=== PATIENT | male | born 1930 | race Caucasian/White ===

== ENCOUNTER 2016-11-16 09:32 | Inpatient (IN) | payer OTHER, MEDICARE ==
[~2016-11-16] VITALS: Ht 172.7 cm; Wt 91.5 kg
[2016-11-16] VITALS (17 sets, daily range): BP systolic 141–186; BP diastolic 73–94; PULSE 58–71; RESP 18–20; TEMP 98–99.8; O2SAT 90–98
[~2016-11-16 09:32] MED LIST: ALLO300T2 PO; AMLO5 PO; ECOT81TA2 PO; HYDR10TA23 PO; IMDU60TA PO; METO100T PO; NITR0.4S SL; PRIL20TA2 PO; TICA90 PO
[2016-11-16] MEDS ORDERED: SODIUM CHLOR 0.9% 1000 ML INJ 1,000 ML IV ONE (09:36)
--- NOTE | 2016-11-16 09:54 | RADRPT ---
EXAM DATE/TIME: 11/16/2016 09:40 [facility] COMPARISON: No previous studies available for comparison. INDICATIONS : Stroke alert. Altered mental status and facial droop. RADIATION DOSE: 37.96 CTDIvol (mGy) This report was called to Dr. Willson at 09 48 MEDICAL HISTORY : Hypertension. prostate cancer SURGICAL HISTORY : Prostatectomy. ENCOUNTER: Initial ACUITY: 1 day PAIN SCALE: Non-responsive LOCATION: cranial TECHNIQUE: Multiple contiguous axial images were obtained of the head. Using automated exposure control and adj ustment of the mA and/or kV according to patient size, radiation dose was kept as low as reasonably a chievable to obtain optimal diagnostic quality images. FINDINGS: Old ischemic changes in the left frontal region and the left parietal region. There is no parenchym al hemorrhage, acute infarction or mass lesion. Ventricle size is appropriate. Posterior fossa is n ormal. CONCLUSION: Ischemic changes negative for an acute process. Adam Trent MD FACR on November 16, 2016 at 9:48 Board Certified Radiologist. This report was verified electronically.
[2016-11-16 09:55] LABS: I-STAT POTASSIUM 3.5 MMOL/L (3.5-4.9)
[2016-11-16 10:00] LABS: AUTOMATED NEUTROPHIL # 7.4 TH/MM3 (1.8-7.7); BASOPHIL # 0.1 TH/MM3 (0-0.2); BASOPHIL % 0.6 % (0.0-2.0); EOSINOPHIL # 0.1 TH/MM3 (0-0.4); EOSINOPHIL % 1.2 % (0.0-4.0); HEMO FLAGS DIFF FINAL; LYMPHOCYTE # 0.8 TH/MM3 (1.0-4.8); MEAN CELL VOLUME 86.6 FL (80.0-100.0); MEAN CORPUSCULAR HEMOGLOBIN 28.7 PG (27.0-34.0); MEAN CORPUSCULAR HGB CONC 33.1 % (32.0-36.0); MONO % 8.6 % (0.0-8.0); NEUT % 80.6 % (16.0-70.0); PLATELET COUNT 216 TH/MM3 (150-450); RED BLOOD COUNT 4.61 MIL/MM3 (4.50-5.90); RED CELL DISTRIBUTION WIDTH 15.2 % (11.6-17.2); WHITE BLOOD COUNT 9.2 TH/MM3 (4.0-11.0)
[2016-11-16 10:09] LABS: INTERNATIONAL NORMALIZED RATIO 1.1 RATIO; PROTHROMBIN TIME - PATIENT 12.3 SEC (9.8-11.6)
[2016-11-16] MEDS ORDERED: GLUCAGON 1 MG/ML VIAL OTHER PRN (10:15)
[2016-11-16] MEDS ORDERED: SODIUM CHLORIDE 0.9% FLUSH 10 ML FLUSH IV FLUSH PRN ×2 (10:15→11:30)
[2016-11-16] MEDS ORDERED: DEXTROSE 50% IN WATER 50 ML VIAL(D50) IV PUSH PRN (10:15)
[2016-11-16 10:28] LABS: CKMB 11.6 NG/ML (0.5-3.6)
--- NOTE | 2016-11-16 10:31 | PD ---
HPI Chief Complaint: Stroke Alert Time Seen by Provider: 09:36 Travel History International Travel<30 days: No Contact w/Intl Traveler<30days: No Traveled to known affect area: No History of Present Illness HPI 86-year-old male presents by ambulance for altered mental status and facial droop. This occurred 1 hour prior to arrival. Patient can state his name but history is very limited. Ambulance team stated that his legs went out from underneath him and there was report of possible fall PFSH Past Medical History Narrative Medical By records Hx Anticoagulant Therapy: Yes (ELIQUIS) Arthritis: No Asthma: No Heart Rhythm Problems: No Cancer: Yes (prostate) Cardiovascular Problems: Yes High Cholesterol: Yes Chemotherapy: No Chest Pain: No Congestive Heart Failure: No COPD: No Cerebrovascular Accident: No Coronary Artery Disease: Yes Gastrointestinal Disorders: No GERD: No Genitourinary: Yes Headaches: No Hepatitis: No Hiatal Hernia: No Hypertension: Yes Kidney Stones: No Musculoskeletal: No Neurologic: No Psychiatric: No Reproductive: No Respiratory: No Migraines: No Myocardial Infarction: No Radiation Therapy: No Renal Failure: No Seizures: No Sickle Cell Disease: No Sleep Apnea: No Ulcer: No ?: Not Past Surgical History Narrative Surgical By records Abdominal Surgery: No AICD: No Appendectomy: No Cardiac Surgery: Yes (STENTS TIMES 4- pacemaker) Cholecystectomy: No Coronary Artery Bypass Graft: No Ear Surgery: No Endocrine Surgery: No Eye Surgery: Yes (CATARACT REMOVAL) Genitourinary Surgery: Yes (PROSTATE REMOVED) Gynecologic Surgery: No Oral Surgery: No Pacemaker: Yes (medtronix dual chamber) Thoracic Surgery: No Other Surgery: Yes (fem pop) Social History Narrative Social History By records Alcohol Use: Yes (OCCASIONAL) Tobacco Use: No Substance Use: No Allergies-Medications (Allergen,Severity, Reaction): Coded Allergies: HMG-CoA Reductase Inhibitors (Verified Allergy, Severe, 10/07/15) MRI PRECAUTION (Verified Adverse Reaction, Severe, PACEMAKER (KD) 12/21/09 , 01/01/10) Reported Meds & Prescriptions Reported Meds & Active Scripts Active Brilinta 90 Mg Tab (Ticagrelor) 90 Mg Tab 90 Mg PO BID 30 Days Norvasc (Amlodipine Besylate) 5 Mg Tab 10 Mg PO DAILY 30 Days Ecotrin (Aspirin) 81 Mg Tabec 81 Mg PO DAILY 30 Days Reported Allopurinol 300 Mg Tab 300 Mg PO DAILY Prilosec Otc (Omeprazole Magnesium) 20 Mg Tab 20 Mg PO DAILY Imdur (Isosorbide Mononitrate) 60 Mg Tabcr 60 Mg PO DAILY Apresoline (Hydralazine HCl) 10 Mg Tab 10 Mg PO TID Lopressor (Metoprolol Tartrate) 100 Mg Tab 100 Mg PO BID Nitrostat (Nitroglycerin) 0.4 Mg Subl 0.4 Mg SL PRN 1 TAB SL EVERY 5 MINS X 3 PRN CHEST PAIN Review of Systems ROS Limitations: Poor Historian Physical Exam Exam Limitations: Poor Historian Narrative GENERAL: Well-nourished, well-developed patient. Hard of hearing SKIN: Warm and dry. HEAD: Normocephalic and atraumatic. EYES: No injection or drainage. Right pupil 1 cm, left pupil pinpoint but appears chronic and postsurgical ENT: No nasal drainage noted. NECK: Supple, trachea midline. CARDIOVASCULAR: Regular rate and rhythm RESPIRATORY: Breath sounds equal bilaterally at apices. No accessory muscle use. GASTROINTESTINAL: Abdomen soft, non-tender, nondistended. NEUROLOGICAL: Awake and alert to name. Clear speech, follows commands Data Data Last Documented VS Vital Signs Date Time Temp Pulse Resp B/P Pulse Ox O2 Delivery O2 Flow Rate FiO2 11/16/16 10:00 96 Nasal Cannula 4 11/16/16 09:40 21 11/16/16 09:32 71 18 11/16/16 09:32 186/94 Orders Diet Npo (11/16/16 Breakfast) Activity Bed Rest (11/16/16 ) Electrocardiogram (11/16/16 ) I-Stat Creatinine (11/16/16 09:36) I-Stat Profile (11/16/16 09:36) Prothrombin Time / Inr (Pt) (11/16/16 09:36) Act Partial Throm Time (Ptt) (11/16/16 09:36) Complete Blood Count With Diff (11/16/16 09:36) Fibrinogen (11/16/16 09:36) Creatine Kinase (Cpk) (11/16/16 09:36) Troponin I (11/16/16 09:36) Ua Includes Microscopic (11/16/16 09:36) Drug Screen, Random Urine (11/16/16 09:36) Type And Screen (11/16/16 09:36) Ct Brain W/O Iv Contrast(Rout) (11/16/16 ) Blood Glucose (11/16/16 09:36) Ecg Monitoring (11/16/16 09:36) Neuro Checks Q2HX12,Q4H (11/16/16 09:36) Nursing Bedside Swallow Assess .ONCE (11/16/16 09:36) Iv Access Insert/Monitor (11/16/16 09:36) NPO (11/16/16 09:36) Oximetry (11/16/16 09:36) Oxygen Administration (11/16/16 09:36) Sodium Chlor 0.9% 1000 Ml Inj (Ns 1000 M (11/16/16 09:36) Resp Oxygen Jimmy C Titrat 1-4 L (11/16/16 09:36) Cath For Specimen (11/16/16 09:36) Ct Cerv Spine W/O Contrast (11/16/16 ) Urinary Catheter Insert/Apply (11/16/16 10:00) Chest, Single Ap (11/16/16 ) Nih Stroke Scale - Nihss .On admission and discharge (11/16/16 10:03) Consult Pt Eval & Treat (11/16/16 10:03) Case Management Consult (11/16/16 ) Activity Bed Rest (11/16/16 10:03) Nursing Bedside Swallow Assess .ONCE (11/16/16 10:03) Scd Bilateral/Knee High MAGDI.QSHIFT (11/16/16 10:03) Diet Npo (11/16/16 Lunch) Hemoglobin (Hgb) A1c (11/16/16 10:03) Lipid Profile (11/17/16 06:00) Us Carotid Arteries Comp Bilat (11/16/16 ) Echo 2d Comp With Doppler (11/16/16 ) Resp Oxygen Jimmy C Titrat 1-4 L (11/16/16 ) ^ Hold Medication (11/16/16 10:03) Sodium Chlor 0.9% 1000 Ml Inj (Ns 1000 M (11/16/16 11:00) Aspirin Chew (Aspirin Chew) (11/17/16 09:00) Bedside Glucose MAGDI.AC&HS (11/16/16 10:03) ^ Discontinue Insulin Orders (11/16/16 10:03) Insulin Aspart Supplemtl Scale (Novolog (11/16/16 11:00) Dextrose 50% In Alex (Vial) Inj (D50w (Vi (11/16/16 10:15) Glucagon Inj (Glucagon Inj) (11/16/16 10:15) Consult Rehab Medicine (11/16/16 10:03) Cross Tie Turner / Telemetry MAGDI.Q8H (11/16/16 10:03) Consult Stoke Navigator (11/16/16 ) CKMB (11/16/16 09:30) CKMB% (11/16/16 09:30) Sodium Chloride 0.9% Flush (Ns Flush) (11/16/16 21:00) Sodium Chloride 0.9% Flush (Ns Flush) (11/16/16 10:15) (Hub Use Only)Inp Phy Cons/Ref (11/16/16 ) (Hub Use Only)Inp Phy Cons/Ref (11/16/16 ) B-Type Natriuretic Peptide (11/16/16 10:59) Consult Cardiology (11/16/16 ) Admit Order (Ed Use Only) (11/16/16 11:22) Labs Laboratory Tests Test 11/16/16 11/16/16 11/16/16 09:30 09:49 10:50 White Blood Count 9.2 TH/MM3 Red Blood Count 4.61 MIL/MM3 Hemoglobin 13.2 GM/DL Bedside Hemoglobin 13.9 G/DL Hematocrit 40.0 % Bedside Hematocrit 41.0 % Mean Corpuscular Volume 86.6 FL Mean Corpuscular Hemoglobin 28.7 PG Mean Corpuscular Hemoglobin 33.1 % Concent Red Cell Distribution Width 15.2 % Platelet Count 216 TH/MM3 Mean Platelet Volume 9.6 FL Neutrophils (%) (Auto) 80.6 % Lymphocytes (%) (Auto) 9.0 % Monocytes (%) (Auto) 8.6 % Eosinophils (%) (Auto) 1.2 % Basophils (%) (Auto) 0.6 % Neutrophils # (Auto) 7.4 TH/MM3 Lymphocytes # (Auto) 0.8 TH/MM3 Monocytes # (Auto) 0.8 TH/MM3 Eosinophils # (Auto) 0.1 TH/MM3 Basophils # (Auto) 0.1 TH/MM3 CBC Comment DIFF FINAL Differential Comment Prothrombin Time 12.3 SEC Prothromb Time International 1.1 RATIO Ratio Activated Partial 32.0 SEC Thromboplast Time Fibrinogen 429 mg/dL Bedside Sodium 139 MMOL/L Bedside Potassium 3.5 MMOL/L Bedside Chloride 103 MMOL/L Bedside Blood Urea Nitrogen 43 MG/DL Bedside Creatinine 2.8 MG/DL Bedside Glucose 178 MG/DL Total Creatine Kinase 365 U/L Creatine Kinase MB 11.6 NG/ML Creatine Kinase MB % 3.2 % Troponin I 3.42 NG/ML Blood Type B POSITIVE Antibody Screen NEGATIVE Blood Bank Comment Urine Color YELLOW Urine Turbidity CLEAR Urine pH 5.5 Urine Specific [place] 1.010 Urine Protein 30 mg/dL Urine Glucose (UA) NEG mg/dL Urine Ketones NEG mg/dL Urine Occult Blood NEG Urine Nitrite NEG Urine Bilirubin NEG Urine Urobilinogen LESS THAN 2.0 MG/DL Urine Leukocyte Esterase NEG Urine RBC 1 /hpf Urine WBC LESS THAN 1 /hpf Urine Amorphous Sediment OCC Urine Bacteria RARE /hpf Urine Hyaline Casts 1 /lpf Urine Mucus FEW /lpf Microscopic Urinalysis Comment Urine Opiates Screen NEG Urine Barbiturates Screen NEG Urine Amphetamines Screen NEG Urine Benzodiazepines Screen NEG Urine Cocaine Screen NEG Urine Cannabinoids Screen NEG MDM Medical Decision Making Medical Screen Exam Complete: Yes Emergency Medical Condition: Yes Medical Record Reviewed: Yes (past history confirm, prior cardiac catheter noted with recent stent 2016) Interpretation(s) CBC & BMP Diagram 11/16/16 09:30 Last [address] 11/16/16 0000 Signed Impressions: Service Date/Time: Monday, November 16, 2016 09:40 - CONCLUSION: Ischemic changes negative for an acute process. Adam Trent MD FACR EKG is paced at 65 which limits interpretation Differential Diagnosis Stroke, bleed, metabolic encephalopathy Narrative Course Patient was stable airway and I walked with patient to CT. No large bleed noted. When I got back to the department discuss with Dr. Garrido at bedside and given on eliquis and with improving symptoms no indication for TPA. NIH stroke scale is 3 with mild dysarthria and drowsiness and unable to answer orientation questioning Fully. We'll admit to the hospital for further care Physician Communication Physician Communication dr steele states he knows the patient very well and he usually comes with his son to his appointments. He states he is on eliquis for atrial fibrillation. He states he had his aortic valve replacement at [facility]. He states continue eliquis and no other anticoagulation at this time and they will follow Dr. Hendricks agrees to full admission in intermediate care area Diagnosis Primary Impression: Altered mental status Additional Impression: NSTEMI (non-ST elevated myocardial infarction) Admitting Information Admitting Physician Requests: Admit Shannan Willson MD Nov 16, 2016 10:31
--- NOTE | 2016-11-16 10:34 | MB ---
cc: ANNABELLE SANTIAGO M.D. DATE OF CONSULTATION: 11/16/2016 REASON FOR CONSULTATION Stroke Alert. HISTORY OF PRESENT ILLNESS Mr. Lopez is an 86-year-old man who has a history of coronary artery disease with cardiac stent placement and is on Eliquis. He presented today with the acute onset around 8:20 this morning of slurring of his speech, facial droop and a fall as well as mental status change with confusion. Therefore, a Stroke Alert was called. PAST MEDICAL HISTORY His past medical history obtained from the EMR indicates: 1. Peripheral vascular disease. 2. Coronary artery disease with cardiac stent placement. 3. Aortic stenosis. Apparently was being evaluated for aortic valve replacement. It is unclear as to whether he has had aortic valve replacement surgery. 4. Fem-pop bypass. 5. Prostatic resection. 6. Cataract surgery. 7. Hyperlipidemia. 8. Hypertension. MEDICATIONS Medications are remarkable for the fact that he is on Eliquis as well as aspirin. NEUROLOGICAL EXAMINATION Higher cortical fuction: He is lethargic but is arousable. He is disoriented to place and date. He is able to tell me his name. He does appear to be hard of hearing as well. He follows simple commands. There is no neglect phenomenon. He cannot answer more complicated questions. He does appear to be somewhat disoriented and confused. Cranial nerves: On cranial nerve exam I do not appreciate a facial droop at the present time. He does have pupillary asymmetry. The right pupil is 2 mm, left 1 mm, sluggishly reactive bilaterally. Possible surgical pupil on the right (he does have a history of cataract removal). The extraocular movements are intact to doll's eyes maneuver. Motor exam: He has normal case work aide bilaterally. He withdraws both lower extremities to tactile stimulation equally and can push down, plantar flex equally bilaterally. Reflexes are symmetric. He has no Babinski sign present. 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 No acute change seen. No hemorrhage is identified. LABORATORY DATA Hematocrit 41%. Sodium 139, potassium 3.5, chloride 103, BUN 43, creatinine 2.8, glucose 178. Remaining labs are pending. IMPRESSION Possible stroke versus metabolic encephalopathy versus TIA. At the present time he appears to be resolving his symptoms. I do not see a facial droop at the present time. There is no focal deficit on his motor examination or reflexes. A CT does not reveal acute change, although there is an old left hemisphere watershed distribution stroke. He has pupillary asymmetry but he does have a history of cataract surgery according to the chart so this could be postsurgical. The patient is not a candidate for IV TPA since he is on Eliquis and also with of what appears to be resolution of his symptoms. We cannot do a CT angiogram as he has an elevated creatinine. The fact that he seems to be resolving as well indicates that he would likely not be an intervention candidate at any rate. RECOMMENDATIONS Will review the NIH Stroke Scale when available. I would recommend continuing Eliquis and aspirin at the present time. I will check a chest x-ray to be sure there is no sign of any type of aortic valve prosthesis and if there is no contraindication would recommend proceeding with a brain MRI and MRA for further evaluation, echocardiogram as well as a carotid ultrasound. Since his symptoms appear to be resolving, I do not see any strong indication for head of bed flat status at the present time. Will also obtain an EEG to be sure there is no focal seizure activity. ADDENDUM Since the original dictation additional history has been obtained. The patient has a pacemaker placement. Therefore, he is not a candidate for MRI or MRA imaging. The NIH stroke scale of the patient is 3. MD LARISSA Patel/AMY /10:00 AM 11:05 AM
--- NOTE | 2016-11-16 10:38 | RADRPT ---
EXAM DATE/TIME: 11/16/2016 10:13 [facility] COMPARISON: No previous studies available for comparison. INDICATIONS : Stroke alert. MEDICAL HISTORY : Hypertension. Carcinoma, prostatic. CAD. SURGICAL HISTORY : Pacemaker. Stents. Prostate removed. ENCOUNTER: Initial ACUITY: 1 day PAIN SCORE: 0/10 LOCATION: Bilateral chest FINDINGS: Pacemaker is in good position. The heart is enlarged. Mild interstitial edema is present. There is no evidence of consolidation, pleural effusion or pneumothorax. CONCLUSION: 1. Cardiomegaly with mild congestive failure. 2. Pacemaker. Adam Trent MD FACR on November 16, 2016 at 10:24 Board Certified Radiologist. This report was verified electronically.
--- NOTE | 2016-11-16 10:54 | RADRPT ---
EXAM DATE/TIME: 11/16/2016 09:40 [facility] COMPARISON: No previous studies available for comparison. INDICATIONS : Trauma. Found down. RADIATION DOSE: 21.52 CTDIvol (mGy) MEDICAL HISTORY : Hypertension. prostate cancer SURGICAL HISTORY : Prostatectomy. ENCOUNTER: Initial ACUITY: 1 day PAIN SCALE: Non-responsive LOCATION: neck TECHNIQUE: Volumetric scanning of the cervical spine was performed. Multiplanar reconstructions in the sagittal, coronal and oblique axial planes were performed. Using automated exposure control and adjustment o f the mA and/or kV according to patient size, radiation dose was kept as low as reasonably achievable to obtain optimal diagnostic quality images. FINDINGS: Vertebral body heights are maintained. Osseous structures appear intact without evidence for acute fr acture or focal bony destruction. The dens is intact. There is a normal C1-2 relationship. Facets are normally aligned. Sagittal alignment is maintained. Prevertebral soft tissues are within normal limi ts. Incidental note is made of an enlarged right thyroid which extends into the superior mediastinum. The calcified plaque is noted in the carotid bulbs bilaterally. Visualized lung apices are clear. There is multilevel degenerative spondylosis of the cervical spine with variable facet arthropathy. T his is most prominent at C3-4, C4-5, C5-6, and C6-7. There is moderate to severe disc space narrowing with associated posterior osteophytes and variable moderate to severe facet arthropathy. There is re sultant mild to moderate neural foraminal narrowing on the left at the involved levels. There is mode rate to severe right neuroforaminal narrowing at C4-5. CONCLUSION: 1. No acute fracture or subluxation. 2. Multilevel degenerative spondylosis with variable degrees of facet arthropathy and neural foramina l stenosis, as above. 3. Incidental note of a markedly enlarged right thyroid lobe. This may be further evaluated with ultr asound examination of an outpatient basis as clinically warranted. Kenneth Bruno MD on November 16, 2016 at 10:25 Board Certified Radiologist. This report was verified electronically.
[2016-11-16] MEDS: INSULIN ASPART SUPPLEMENTAL SCALE SQ SCH ×3 (11:00→20:55)
[2016-11-16 11:17] LABS: BACTERIA, URINE RARE /hpf; BLOOD, URINE NEG (NEG); GLUCOSE,URINE NEG (NEG); HYALINE CAST, URINE 1 /lpf (RARE); KETONE, URINE NEG (NEG); MUCUS URINE FEW /lpf (OCC); NITRITE,URINE NEG (NEG); PH, URINE 5.5 (5.0-8.5); URINE COLOR YELLOW (YELLW/STRAW)
[2016-11-16 11:20] LABS: AMPHETAMINE, URINE NEG (NEG); BARBITURATES, URINE NEG (NEG); COCAINE, URINE NEG (NEG)
[2016-11-16] MEDS ORDERED: ACETAMINOPHEN 325 MG TAB PO PRN ×2 (11:30)
[2016-11-16] MEDS ORDERED: SENNOSIDES 8.6 MG TAB PO PRN (11:30)
[2016-11-16] MEDS ORDERED: ONDANSETRON HCL 4 MG/2 ML VIAL IVP PRN (11:30)
[2016-11-16] MEDS ORDERED: NALOXONE HCL 0.4 MG/ML AMP IV PRN (11:30)
--- NOTE | 2016-11-16 11:40 | HHI.HP ---
HPI Service [facility] Primary Care Physician Unknown Admission Diagnosis NSTEMI, altered mental status Diagnoses: (1) Toxic metabolic encephalopathy (2) Encephalopathy, metabolic (3) TIA (transient ischemic attack) (4) NSTEMI (non-ST elevated myocardial infarction) (5) Hypertension (6) CAD (coronary artery disease) Chief Complaint: Altered Mental status change Travel History International Travel<30 Days: No Contact w/Intl Traveler <30 Da: No Traveled to Known Affected Are: No History of Present Illness Patient is unable to communicate at this time during my exam and history is obtained from ED report and chart review below; "86-year-old male presents by ambulance for altered mental status and facial droop. This occurred 1 hour prior to arrival. Patient can state his name but history is very limited. Ambulance team stated that his legs went out from underneath him and there was report of possible fall" Abnormal labs include troponin I 3.42, BNP 651, BUN/creatinine 43/2.8 and blood glucose 178. Vitals on admission HR 71, RR 18, BP 186/124 and 96%RA Review of Systems ROS Limitations: Altered Mental Status Except as stated in HPI: all other systems reviewed are Neg Past Family Social History Past Medical History Obtained from reviewing chart: Hx Anticoagulant Therapy: Yes (ELIQUIS) Cancer: Yes (prostate) Cardiovascular Problems: Yes Hypertension: Yes Past Surgical History Obtained from reviewing chart: Cardiac Surgery: Yes (STENTS TIMES 4- pacemaker) Eye Surgery: Yes (CATARACT REMOVAL) Genitourinary Surgery: Yes (PROSTATE REMOVED) Pacemaker: Yes (medtronix dual chamber) Other Surgery: Yes (fem pop) Reported Medications Obtained from reviewing chart: Brilinta 90 Mg Tab (Ticagrelor) 90 Mg Tab 90 Mg PO BID 30 Days Norvasc (Amlodipine Besylate) 5 Mg Tab 10 Mg PO DAILY 30 Days Ecotrin (Aspirin) 81 Mg Tabec 81 Mg PO DAILY 30 Days Reported Allopurinol 300 Mg Tab 300 Mg PO DAILY Prilosec Otc (Omeprazole Magnesium) 20 Mg Tab 20 Mg PO DAILY Imdur (Isosorbide Mononitrate) 60 Mg Tabcr 60 Mg PO DAILY Apresoline (Hydralazine HCl) 10 Mg Tab 10 Mg PO TID Lopressor (Metoprolol Tartrate) 100 Mg Tab 100 Mg PO BID Nitrostat (Nitroglycerin) 0.4 Mg Subl 0.4 Mg SL PRN 1 TAB SL EVERY 5 MINS X 3 PRN CHEST PAIN Allergies: Coded Allergies: HMG-CoA Reductase Inhibitors (Verified Allergy, Severe, 10/07/15) MRI PRECAUTION (Verified Adverse Reaction, Severe, PACEMAKER (KD) 12/21/09 , 01/01/10) Family History Secondary to patient's altered mental status change, unable to obtain family history Social History Obtained from reviewing chart: Alcohol Use: Yes (OCCASIONAL) Tobacco Use: No Substance Use: No Physical Exam Vital Signs Vital Signs Date Time Temp Pulse Resp B/P Pulse Ox O2 Delivery O2 Flow Rate FiO2 11/16/16 10:00 96 Nasal Cannula 4 11/16/16 09:40 96 21 11/16/16 09:32 71 18 96 Room Air 11/16/16 09:32 71 18 186/94 96 11/16/16 09:32 71 18 186/94 96 Room Air 11/16/16 09:32 96 Room Air Physical Exam GENERAL: Lethargic SKIN: No rashes, ecchymoses or lesions. Cool and dry. HEAD: Atraumatic. Normocephalic. No temporal or scalp tenderness. EYES: Pupils equal round and reactive. Extraocular motions intact. ENT: Nose without bleeding, purulent drainage or septal hematoma. Throat without erythema, tonsillar hypertrophy or exudate. Uvula midline. Airway patent. NECK: Trachea midline. No JVD or lymphadenopathy. Supple, nontender, no meningeal signs. CARDIOVASCULAR: Irregular Regular rate and rhythm without murmurs, gallops, or rubs. RESPIRATORY: Clear to auscultation. Breath sounds decrease bilaterally. No wheezes, rales, or rhonchi. GASTROINTESTINAL: Abdomen soft, non-tender, nondistended. No hepato-splenomegaly , or palpable masses. No guarding. MUSCULOSKELETAL: Extremities without clubbing, cyanosis, or edema. No joint tenderness, effusion, or edema noted. No calf tenderness. Negative Homans sign bilaterally. NEUROLOGICAL: Awake and alert. Cranial nerves II through XII intact. Laboratory Laboratory Tests Test 11/16/16 11/16/16 11/16/16 09:30 09:49 10:50 White Blood Count 9.2 Red Blood Count 4.61 Hemoglobin 13.2 Bedside Hemoglobin 13.9 Hematocrit 40.0 Bedside Hematocrit 41.0 Mean Corpuscular Volume 86.6 Mean Corpuscular Hemoglobin 28.7 Mean Corpuscular Hemoglobin 33.1 Concent Red Cell Distribution Width 15.2 Platelet Count 216 Mean Platelet Volume 9.6 Neutrophils (%) (Auto) 80.6 Lymphocytes (%) (Auto) 9.0 Monocytes (%) (Auto) 8.6 Eosinophils (%) (Auto) 1.2 Basophils (%) (Auto) 0.6 Neutrophils # (Auto) 7.4 Lymphocytes # (Auto) 0.8 Monocytes # (Auto) 0.8 Eosinophils # (Auto) 0.1 Basophils # (Auto) 0.1 CBC Comment DIFF FINAL Differential Comment Prothrombin Time 12.3 Prothromb Time International 1.1 Ratio Activated Partial 32.0 Thromboplast Time Fibrinogen 429 Bedside Sodium 139 Bedside Potassium 3.5 Bedside Chloride 103 Bedside Blood Urea Nitrogen 43 Bedside Creatinine 2.8 Bedside Glucose 178 Total Creatine Kinase 365 Creatine Kinase MB 11.6 Creatine Kinase MB % 3.2 Troponin I 3.42 Blood Type B POSITIVE Antibody Screen NEGATIVE Blood Bank Comment Urine Color YELLOW Urine Turbidity CLEAR Urine pH 5.5 Urine Specific [place] 1.010 Urine Protein 30 Urine Glucose (UA) NEG Urine Ketones NEG Urine Occult Blood NEG Urine Nitrite NEG Urine Bilirubin NEG Urine Urobilinogen LESS THAN 2.0 Urine Leukocyte Esterase NEG Urine RBC 1 Urine WBC LESS THAN 1 Urine Amorphous Sediment OCC Urine Bacteria RARE Urine Hyaline Casts 1 Urine Mucus FEW Microscopic Urinalysis Comment Urine Opiates Screen NEG Urine Barbiturates Screen NEG Urine Amphetamines Screen NEG Urine Benzodiazepines Screen NEG Urine Cocaine Screen NEG Urine Cannabinoids Screen NEG Result Diagram: 11/16/1630 Imaging Last Impressions Head CT 11/16/16 0000 Signed Impressions: Service Date/Time: Wednesday, November 16, 2016 09:40 - CONCLUSION: Ischemic changes negative for an acute process. Adam Trent MD FACR Cervical Spine CT 11/16/16 0000 Signed Impressions: Service Date/Time: Wednesday, November 16, 2016 09:40 - CONCLUSION: 1. No acute fracture or subluxation. 2. Multilevel degenerative spondylosis with variable degrees of facet arthropathy and neural foraminal stenosis, as above. 3. Incidental note of a markedly enlarged right thyroid lobe. This may be further evaluated with ultrasound examination of an outpatient basis as clinically warranted. Kenneth Bruno MD Assessment and Plan Problem List: (1) TIA (transient ischemic attack) ICD Code: G45.9 Status: Acute (2) Encephalopathy, metabolic ICD Code: G93.41 Status: Acute (3) Toxic metabolic encephalopathy ICD Code: G92 Status: Acute (4) NSTEMI (non-ST elevated myocardial infarction) ICD Code: I21.4 Status: Acute (5) Hypertension ICD Code: I10 Status: Acute (6) CAD (coronary artery disease) ICD Code: I25.10 Status: Acute (7) Atrial fibrillation ICD Code: I48.91 Status: Acute Assessment and Plan 86-year-old man with TIA/stroke alert/metabolic encephalopathy -Continue with aspirin as well as Eliquis -Start statin therapy -NIHSS, Neuro checks, Monitor on telemetry -PT/OT/ST evaluations, consult rehab medicine -allow permissive HTN, IV Vasotec and IV labetalol if SBP >220 -Check lipid profile and HgbA1c -Check carotid U/S, 2-D echo and EEG -Head CT 11/16/16 noted and review by me with Ischemic changes negative for an acute process. -Unable to obtain brain MRI/MRA secondary to history of AICD -Unable to obtain CTA secondary to worsening renal function -Appreciate input from neurology -Check UDS, UA as well as ammonia level Non-ST elevation AK History of atrial fibrillation History of AICD placement History of CHF ACS rule out per protocol with serial cardiac enzyme and EKGs Continue with Eliquis pending consultation from cardiology Resume outpatient medications except antihypertensive medications Check 2-D echo History of hypertension: We will allow for permissive hypertension Acute renal failure Prerenal, secondary to dehydration Gentle IV fluid hydration and monitor BUN and creatinine. Avoid all nephrotoxic drugs History of dementia Resume outpatient medications Code Status Full code Discussed Condition With ED physician Physician Certification 2 Midnight Certification Type: Admission for Inpatient Services Order for Inpatient Services The services are ordered in accordance with Medicare regulations or non- Medicare payer requirements, as applicable. In the case of services not specified as inpatient-only, they are appropriately provided as inpatient services in accordance with the 2-midnight benchmark. Estimated LOS (days): 2 days is the estimated time the patient will need to remain in the hospital, assuming treatment plan goals are met and no additional complications. Post-Hospital Plan: Not yet determined Aime Hendricks MD Nov 16, 2016 11:40
[2016-11-16] MEDS: SODIUM CHLOR 0.9% 1000 ML INJ 1,000 ML IV SCH (11:44)
[2016-11-16] MEDS ORDERED: FURO40TA PO (11:54)
[2016-11-16] MEDS ORDERED: HYDR-3799 PO (11:54)
[2016-11-16] MEDS ORDERED: ASPI81CH3 CHEW (11:54)
[2016-11-16] MEDS ORDERED: METO100T PO (11:54)
[2016-11-16] MEDS ORDERED: ISOS60TA PO (11:54)
[2016-11-16] MEDS ORDERED: AMLO10TA2 PO (11:54)
[2016-11-16] MEDS ORDERED: PANT40TA3 PO (11:54)
[2016-11-16] MEDS ORDERED: ALLO100T PO (11:54)
[2016-11-16] MEDS ORDERED: APIX2.5T PO (11:54)
--- NOTE | 2016-11-16 12:14 | RADRPT ---
EXAM DATE/TIME: 11/16/2016 10:48 [facility] COMPARISON: No previous studies available for comparison. INDICATIONS : Cerebrovascular accident. MEDICAL HISTORY : Hypercholesterolemia. Hypertension. Carcinoma, prostate. CAD. Chronic kidney di sease. Ventral hernia. Anticoagulant therapy, Eliquis. SURGICAL HISTORY : Pacemaker. Prostatectomy. Cataract removal. Left shoulder fracture surgery. ENCOUNTER: Initial ACUITY: 1 day PAIN SCORE: Nonresponsive. LOCATION: Bilateral neck PEAK SYSTOLIC VELOCITIES (cm/sec): ICA/CCA RATIO: Right: 0.9 Left: 1.3 ICA: Right: 43 Left: 64 CCA: Right: 50 Left: 47 ECA: Right: 51 Left: 152 VERTEBRAL: Right: 16.8 antegrade Left: 75 antegrade Elevated flow velocities and ICA/CCA ratios have been found to correlate with increased degrees of vessel stenosis, calculated as percentage of diameter relative to a normal segment of distal ICA/CCA FINDINGS: RIGHT CAROTID: There is no evidence for a hemodynamically significant carotid stenosis. Minimal sof t plaque is noted on the right. Minimal intimal hyperplasia is present with scattered calcific plaqu e. LEFT CAROTID: There is no evidence for a hemodynamically significant carotid stenosis. Minimal inti mal hyperplasia is present with scattered calcific plaque. VERTEBRAL ARTERIES: Flow is antegrade in both vertebral arteries. MISCELLANEOUS: There are no ancillary masses or adenopathy. CONCLUSION: Negative examination for a hemodynamically significant carotid stenosis. Minimal soft p laque is noted on the right. CT angiography may be of benefit. Adam Trent MD FACR Board Certified Radiologist. This report was verified electronically.
--- NOTE | 2016-11-16 13:43 | MB ---
cc: ARACELIS VERA DATE OF CONSULTATION 11/16/2016 DATE OF 1930 REASON FOR CONSULTATION Elevated troponin HISTORY OF PRESENT ILLNESS 86-year-old male with a past medical history significant for coronary artery disease, TAVR, atrial fibrillation on chronic oral anticoagulation, peripheral vascular disease status post fem-pop bypass, hypertension, hyperlipidemia who presented to the emergency department with slurred speech, facial droop and acute change in mental status associated with confusion. A stroke alert was called and neurology evaluated the patient and they noted the patient was not a tPA candidate given the chronic oral anticoagulation. Imaging studies of the head did not reveal any acute head infarct or bleeding. He was not a candidate for MRI given the patient has a pacemaker. Troponin of 3.42. EKG is showing a paced rhythm. Cardiology has been consulted for further management and evaluation. Unfortunately, history taken from the chart given that the patient is a poor historian and is hard of hearing and he has severe dementia. There is no one in the room with him either. Apparently and sons are not around. REVIEW OF SYSTEMS Unobtainable PAST MEDICAL HISTORY Per chart: 1. PAD 2. CAD 3. AF status post TAVR 4. Fem pop bypass 5. Prostatic resection 6. Carotid surgery 7. Hyperlipidemia 8. Hypertension 9. Dementia FAMILY HISTORY Unobtainable SOCIAL HISTORY Unobtainable ALLERGIES STATINS CARDIAC MEDICATIONS AT HOME 1. Norvasc 10 mg p.o. daily 2. Eliquis 2.5 mg p.o. b.i.d. 3. Aspirin 81 mg p.o. daily 4. Lasix 40 mg p.o. daily 5. Hydralazine 25 mg p.o. t.i.d. 6. Imdur 60 mg p.o. daily 7. Metoprolol 100 mg p.o. t.i.d. DATA CBC hemoglobin 13, hematocrit of 40, platelet count 216, INR 1.1. Electrolytes sodium 139, potassium 3.5, BUN 43, creatinine is 2.8, troponin 3.42. BNP 651. Toxicology screen negative. Urinalysis is remarkable for a large amount of protein in the urine. CT HEAD: There is no acute ischemia or bleed. CERVICAL SPINE CT: Unremarkable. CAROTID ARTERY ULTRASOUND: Unremarkable EKG; Ventricular paced rhythm ASSESSMENT/PLAN 86-year-old male with significant cardiovascular history who presents to the emergency department with symptoms and signs concerning for an acute stroke vs. TIA or seizure. Head imaging unremarkable but MRI cannot be perform due to pacemaker. He has been found to have a troponin of 3. He remains hemodynamically stable, however still very confused, unable to provide a history. He denies chest pains or any cardiovascular complaints. Regarding elevated troponin, this might be explain by a neurological event eg. acute stroke or a atypical presentation of ACS, however given significant changes in baseline neurological status acute stroke seems more likely. Thus at this time he is not a candidate for invasive cardiac management (LHC/PCI). In respect to anticoagulation will defer to Neurology. Recommendations: 1. Ischemic directed therapy for medical management for CAD with aspirin and beta blockers 2. Hold LOGAN inhibitors given the acute kidney injury 3. No statins due to allergy 4. Echocardiogram to assess his LV systolic function. Thank you for the opportunity to participate in the care of this patient. Further management to be determined. MD BEBETO Velasquez/ELDA /1:04 PM /1:25 PM TOMMY
[2016-11-16] MEDS: hydrALAZINE HCL 20 MG/ML VIAL IV PUSH PRN ×2 (14:10→23:53)
--- NOTE | 2016-11-16 16:44 | MG ---
cc: ANNABELLE SANTIAGO Lab No: [id number] Date: 11/16/16 Age: 86 Sex: M Race: TECHNIQUE 17 channel EEG. DESCRIPTION The background rhythm reveals a symmetrical alpha rhythm with frequency of 8 Hz, amplitude 10-20 microvolts. During drowsiness there is slowing in the theta range. There are no lateralizing features identified. Occasional muscle artifact is seen. There are no epileptiform features present. Hyperventilation was not done. Photic stimulation was done in a stepwise fashion with a normal driving response. INTERPRETATION Normal EEG. MD LARISSA Patel/HARESH /4:27 PM /4:38 PM
[2016-11-16 17:09] LABS: HEMOGLOBIN A1a 0.9 %; HEMOGLOBIN A1b 2.2 %; HEMOGLOBIN Ao 82.7 %; HEMOGLOBIN LA1C 2.7 %; HEMOGLOBIN P3 6.2 %
[2016-11-16 17:18] LABS: CKMB 10.6 NG/ML (0.5-3.6)
[2016-11-16] MEDS: APIXABAN 2.5 MG TABLET PO SCH ×2 (20:52→20:57)
[2016-11-16] MEDS: SODIUM CHLORIDE 0.9% FLUSH 10 ML FLUSH IV FLUSH SCH (20:52)
[2016-11-16] MEDS ORDERED: SODIUM CHLORIDE 0.9% FLUSH 10 ML FLUSH IV FLUSH SCH (21:00)
[2016-11-16] MEDS ORDERED: HEPARIN SODIUM - IV 10,000 UNITS/10 ML VIAL IV PRN ×2 (23:15)
[2016-11-16] MEDS: HEPARIN 25,000 UNITS-D5W 250 ML - PREMIX IV SCH (23:17)
[2016-11-16 23:33] LABS: INDIRECT BILIRUBIN 0.7 MG/DL (0.0-0.8); TOTAL BILIRUBIN ADULT 1.3 MG/DL (0.2-1.0)
[2016-11-17] VITALS (27 sets, daily range): BP systolic 136–204; BP diastolic 63–86; PULSE 58–63; RESP 16–20; TEMP 98.4–99.5; O2SAT 92–96
[2016-11-17] MEDS: SODIUM CHLOR 0.9% 1000 ML INJ 1,000 ML IV SCH ×2 (01:18→15:44)
[2016-11-17] MEDS: ISOSORBIDE MONONITRATE 60 MG TAB PO SCH (05:25)
[2016-11-17] MEDS: hydrALAZINE HCL 20 MG/ML VIAL IV PUSH PRN ×3 (05:25→20:09)
[2016-11-17] MEDS: INSULIN ASPART SUPPLEMENTAL SCALE SQ SCH ×4 (06:12→20:09)
[2016-11-17 06:37] LABS: AUTOMATED NEUTROPHIL # 7.4 TH/MM3 (1.8-7.7); BASOPHIL % 0.4 % (0.0-2.0); EOSINOPHIL % 0.3 % (0.0-4.0); HEMATOCRIT 41.3 % (39.0-51.0); HEMO FLAGS DIFF FINAL; LYMPH % 12.7 % (9.0-44.0); LYMPHOCYTE # 1.2 TH/MM3 (1.0-4.8); MEAN CELL VOLUME 86.8 FL (80.0-100.0); MEAN CORPUSCULAR HEMOGLOBIN 28.5 PG (27.0-34.0); MEAN CORPUSCULAR HGB CONC 32.9 % (32.0-36.0); MONO % 9.4 % (0.0-8.0); NEUT % 77.2 % (16.0-70.0); PLATELET COUNT 213 TH/MM3 (150-450); RED BLOOD COUNT 4.75 MIL/MM3 (4.50-5.90); RED CELL DISTRIBUTION WIDTH 15.2 % (11.6-17.2); WHITE BLOOD COUNT 9.6 TH/MM3 (4.0-11.0)
[2016-11-17 06:56] LABS: APTT (PATIENT) 59.5 SEC (24.3-30.1)
[2016-11-17 07:07] LABS: ANION GAP 13 MEQ/L (5-15); AST (GOT) 46 U/L (15-37); BICARBONATE 23.1 MEQ/L (21.0-32.0); BLOOD UREA NITROGEN 40 MG/DL (7-18); CHLORIDE 106 MEQ/L (98-107); GLOMERULAR FILTRATION RATE 24 ML/MIN (>89); POTASSIUM 3.6 MEQ/L (3.5-5.1); SODIUM (NA) 142 MEQ/L (136-145)
[2016-11-17 07:08] LABS: ALT (GPT) 28 U/L (12-78)
[2016-11-17 07:10] LABS: ALKALINE PHOSPHATASE 134 U/L (45-117); HDL CHOLESTEROL 32.2 MG/DL (40.0-60.0); LDL CHOLESTEROL 116 MG/DL (0-99); TOTAL BILIRUBIN ADULT 1.3 MG/DL (0.2-1.0)
[2016-11-17] MEDS: SODIUM CHLORIDE 0.9% FLUSH 10 ML FLUSH IV FLUSH SCH ×2 (09:00→20:09)
[2016-11-17] MEDS: FUROSEMIDE 40 MG TAB PO SCH (09:00)
[2016-11-17] MEDS: APIXABAN 2.5 MG TABLET PO SCH ×2 (09:00→20:09)
[2016-11-17] MEDS: ASPIRIN 81 MG CHEW TAB PO SCH (09:00)
--- NOTE | 2016-11-17 10:00 | ECHRPT ---
Indication: cva/tia Indication: cva/tia CONCLUSIONS The left ventricular systolic function is normal with an estimated ejection fraction in the range of 55- 60%.wall thickness is measured at the upper limits of normal. No regional wall motion abnormalities are present.The left atrial size is mildly dilatedModerate mitral annular calcification. Mild mitral christine ve regurgitation. Diastolic dysfunction represented with a small a and a very large E wavebioprosthetic aortic valve without stenosis or regurgitationThere is mild tricuspid valve regurgitation. BP: 186 / 94 HR: 71 Rhythm: Other MEASUREMENTS (Male / Female) Normal Values Technical Quality:Technically difficult study 2D ECHO LVOT Diameter 2.3 cm Aortic Root Diameter 2.8 cm DOPPLER AV Peak Velocity 141.4 cm/s AV Peak Gradient 8.0 mmHg AV Mean Gradient 5.0 mmHg AV Velocity Time Integral 29.5 cm LVOT Peak Velocity 105.9 cm/s LVOT Peak Gradient 4.5 mmHg LVOT Velocity Time Integral 22.4 cm LVOT Cardiac Index 3127.2 cm/minm AV Area Cont Eq vti 3.2 cm AV Area Cont Eq pk 3.1 cm Mitral E Point Velocity 149.7 cm/s LV E' Lateral Velocity 6.0 cm/s Mitral E to LV E' Lateral Ratio 24.8 LV E' Septal Velocity 6.2 cm/s Mitral E to LV E' Septal Ratio 24.2 TR Peak Velocity 303.0 cm/s TR Peak Gradient 36.7 mmHg PV Peak Velocity 77.5 cm/s PV Peak Gradient 2.4 mmHg FINDINGS Left Ventricle Normal left ventricular size and wall thickness. The left ventricular systolic function is normal wi th an estimated ejection fraction in the range of 55-60%.wall thickness is measured at the upper limits of normal. No regional wall motion abnormalities are present. Left Atrium The left atrial size is mildly dilated Mitral Valve Moderate mitral annular calcification. Mild mitral valve regurgitation. Diastolic dysfunction repres ented with a small a and a very large E wave Aortic Valve bioprosthetic aortic valve without stenosis or regurgitation Tricuspid Valve There is mild tricuspid valve regurgitation. Enrique Nicole MD (Electronically Signed) Final Date:17 November 2016 09:59
[2016-11-17 10:49] LABS: HEMOGLOBIN A1b 2.1 %; HEMOGLOBIN Ao 82.9 %; HEMOGLOBIN LA1C 2.5 %; HEMOGLOBIN P3 6.2 %
--- NOTE | 2016-11-17 11:37 | PD.CARD.PN ---
Subjective Subjective Remarks No CV complaints Uncooperative Neuro status unchanged since admission Objective Medications Current Medications Medications (Trade) Dose Ordered Sig/Santiago Route Start Time Stop Time Status Last Admin (NS 1000 ml Inj) 1,000 ml @ 70 mls/hr [id number] IV 11/16/16 11:00 11/17/16 01:18 (Aspirin Chew) 81 mg DAILY PO 11/17/16 09:00 (NovoLOG SUPPLEMENTAL SCALE) 1 ACHS SQ 11/16/16 11:00 (D50w (Vial) Inj) 50 ml UNSCH PRN IV PUSH 11/16/16 10:15 (Glucagon Inj) 1 mg UNSCH PRN OTHER 11/16/16 10:15 (NS Flush) 2 ml UNSCH PRN IV FLUSH 11/16/16 11:30 (NS Flush) 2 ml BID IV FLUSH 11/16/16 21:00 11/16/16 20:52 (Tylenol) 650 mg Q4H PRN PO 11/16/16 11:30 (Zofran Inj) 4 mg Q6H PRN IVP 11/16/16 11:30 (Tylenol) 650 mg Q6H PRN PO 11/16/16 11:30 (Narcan Inj) 0.4 mg UNSCH PRN IV 11/16/16 11:30 (Senokot) 17.2 mg Q12H PRN PO 11/16/16 11:30 (Eliquis) 2.5 mg BID PO 11/16/16 21:00 (Lasix) 40 mg DAILY PO 11/17/16 09:00 (Imdur) 60 mg DAILY@07 PO 11/17/16 07:00 Hydralazine HCl 20 mg 20 mg Q4H PRN IV PUSH 11/16/16 12:15 11/17/16 05:25 (Heparin-D5W Inj) 250 ml @ 0 mls/hr TITRATE IV 11/16/16 23:15 11/16/16 23:17 (Heparin Inj) 5,000 units UNSCH PRN IV 11/16/16 23:15 (Heparin Inj) 2,500 units UNSCH PRN IV 11/16/16 23:15 Vital Signs / I&O Vital Signs Date Time Temp Pulse Resp B/P Pulse Ox O2 Delivery O2 Flow Rate FiO2 11/17/16 11:00 59 11/17/16 11:00 98.9 59 16 155/71 94 11/17/16 10:48 95 Nasal Cannula 3.50 11/17/16 10:00 60 11/17/16 09:00 60 11/17/16 08:00 59 11/17/16 07:00 98.8 59 16 163/69 94 11/17/16 07:00 94 Nasal Cannula 2.00 11/17/16 07:00 63 11/17/16 06:26 60 11/17/16 05:50 60 11/17/16 04:25 60 11/17/16 04:18 99.5 60 178/81 95 11/17/16 03:48 60 11/17/16 02:00 60 11/17/16 01:00 60 11/17/16 00:00 58 11/16/16 23:28 90 Nasal Cannula 2.00 11/16/16 23:00 59 11/16/16 23:00 99.8 60 179/77 93 11/16/16 22:00 60 11/16/16 21:00 60 11/16/16 20:00 60 11/16/16 19:00 99.3 60 141/78 95 11/16/16 19:00 59 11/16/16 19:00 Nasal Cannula 2.00 21 11/16/16 18:00 59 11/16/16 17:00 58 11/16/16 16:00 58 11/16/16 15:00 59 11/16/16 15:00 98.0 60 20 149/73 92 11/16/16 13:00 67 18 159/82 95 Nasal Cannula 2 11/16/16 12:00 65 18 167/79 95 Nasal Cannula 2 11/16/16 11:54 98 Nasal Cannula 4.00 I/O 11/16/16 11/16/16 11/16/16 11/17/16 11/17/16 11/17/16 07:00 15:00 23:00 07:00 15:00 23:00 Intake Total 395 ml 700 ml Output Total 550 ml 325 ml Balance -155 ml 375 ml Intake IV Total 395 ml 700 ml Output Urine Total 550 ml 325 ml Stool Total 0 ml Physical Exam GENERAL: Well-nourished, well-developed patient. SKIN: Warm and dry. HEAD: Normocephalic. EYES: No scleral icterus. No injection or drainage. NECK: Supple, trachea midline. No JVD or lymphadenopathy. CARDIOVASCULAR: Regular rate and rhythm without murmurs, gallops, or rubs. RESPIRATORY: Breath sounds equal bilaterally. No accessory muscle use. GASTROINTESTINAL: Abdomen soft, non-tender, nondistended. EXTREMITIES: No cyanosis, or edema. Laboratory Laboratory Tests Test 11/16/16 11/16/16 11/16/16 11/17/16 12:35 13:53 22:24 05:50 Ammonia LESS THAN 10 MCMOL/L Total Creatine Kinase 358 U/L 270 U/L Creatine Kinase MB 10.6 NG/ML Creatine Kinase MB % 3.0 % Troponin I 3.92 NG/ML 3.88 NG/ML Total Bilirubin 1.3 MG/DL 1.3 MG/DL Direct Bilirubin 0.6 MG/DL Indirect Bilirubin 0.7 MG/DL Aspartate Amino Transf 46 U/L 46 U/L (AST/SGOT) Alanine Aminotransferase 28 U/L 28 U/L (ALT/SGPT) Alkaline Phosphatase 126 U/L 134 U/L Total Protein 6.7 GM/DL 7.0 GM/DL Albumin 3.1 GM/DL 3.2 GM/DL White Blood Count 9.6 TH/MM3 Red Blood Count 4.75 MIL/MM3 Hemoglobin 13.6 GM/DL Hematocrit 41.3 % Mean Corpuscular Volume 86.8 FL Mean Corpuscular Hemoglobin 28.5 PG Mean Corpuscular Hemoglobin 32.9 % Concent Red Cell Distribution Width 15.2 % Platelet Count 213 TH/MM3 Mean Platelet Volume 10.1 FL Neutrophils (%) (Auto) 77.2 % Lymphocytes (%) (Auto) 12.7 % Monocytes (%) (Auto) 9.4 % Eosinophils (%) (Auto) 0.3 % Basophils (%) (Auto) 0.4 % Neutrophils # (Auto) 7.4 TH/MM3 Lymphocytes # (Auto) 1.2 TH/MM3 Monocytes # (Auto) 0.9 TH/MM3 Eosinophils # (Auto) 0.0 TH/MM3 Basophils # (Auto) 0.0 TH/MM3 CBC Comment DIFF FINAL Differential Comment Activated Partial 59.5 SEC Thromboplast Time Sodium Level 142 MEQ/L Potassium Level 3.6 MEQ/L Chloride Level 106 MEQ/L Carbon Dioxide Level 23.1 MEQ/L Anion Gap 13 MEQ/L Blood Urea Nitrogen 40 MG/DL Creatinine 2.59 MG/DL Estimat Glomerular Filtration 24 ML/MIN Rate Random Glucose 125 MG/DL Calcium Level 9.5 MG/DL Triglycerides Level 100 MG/DL Cholesterol Level 168 MG/DL LDL Cholesterol 116 MG/DL HDL Cholesterol 32.2 MG/DL Cholesterol/HDL Ratio 5.21 RATIO Imaging Last Impressions Head CT 11/16/16 Signed Impressions: Service Date/Time: Wednesday, November 16, 2016 09:40 - CONCLUSION: Ischemic changes negative for an acute process. Adam Trent MD FACR Cervical Spine CT 11/16/16 Signed Impressions: Service Date/Time: Wednesday, November 16, 2016 09:40 - CONCLUSION: 1. No acute fracture or subluxation. 2. Multilevel degenerative spondylosis with variable degrees of facet arthropathy and neural foraminal stenosis, as above. 3. Incidental note of a markedly enlarged right thyroid lobe. This may be further evaluated with ultrasound examination of an outpatient basis as clinically warranted. Kenneth Bruno MD Carotid Artery Ultrasound 11/16/16 Signed Impressions: Service Date/Time: Wednesday, November 16, 2016 10:48 - CONCLUSION: Negative examination for a hemodynamically significant carotid stenosis. Minimal soft plaque is noted on the right. CT angiography may be of benefit. Adam Trent MD Assessment and Plan Problem List: (1) NSTEMI (non-ST elevated myocardial infarction) Assessment and Plan: Unfortunately mental status has not cleared up. Not an MRI candidate. ?CVA. Not a C candidate. Continue medical management (2) Altered mental status (3) TIA (transient ischemic attack) (4) CAD (coronary artery disease) (5) Hypertension (6) Encephalopathy, metabolic (7) Atrial fibrillation (8) Toxic metabolic encephalopathy Enrique Nicole MD Nov 17, 2016 11:37
[2016-11-17 12:09] LABS: APTT (PATIENT) 69.9 SEC (24.3-30.1)
--- NOTE | 2016-11-17 14:01 | HHI.PR ---
Subjective Remarks Follow-up non-ST elevation [place]/encephalopathy/questionable stroke 11/17/16-patient seen and examined, lethargic and AMS. unable to provide any history case discussed with DONELL Fuentes Objective Vitals Vital Signs Date Time Temp Pulse Resp B/P Pulse Ox O2 Delivery O2 Flow Rate FiO2 11/17/16 13:00 59 11/17/16 12:00 59 11/17/16 11:00 59 11/17/16 11:00 98.9 59 16 155/71 94 11/17/16 10:48 95 Nasal Cannula 3.50 11/17/16 10:00 60 11/17/16 09:00 60 11/17/16 08:00 59 11/17/16 07:00 98.8 59 16 163/69 94 11/17/16 07:00 94 Nasal Cannula 2.00 11/17/16 07:00 63 11/17/16 06:26 60 11/17/16 05:50 60 11/17/16 04:25 60 11/17/16 04:18 99.5 60 178/81 95 11/17/16 03:48 60 11/17/16 02:00 60 11/17/16 01:00 60 11/17/16 00:00 58 11/16/16 23:28 90 Nasal Cannula 2.00 11/16/16 23:00 59 11/16/16 23:00 99.8 60 179/77 93 11/16/16 22:00 60 11/16/16 21:00 60 11/16/16 20:00 60 11/16/16 19:00 99.3 60 141/78 95 11/16/16 19:00 59 11/16/16 19:00 Nasal Cannula 2.00 21 11/16/16 18:00 59 11/16/16 17:00 58 11/16/16 16:00 58 11/16/16 15:00 59 11/16/16 15:00 98.0 60 20 149/73 92 I/O 11/16/16 11/16/16 11/16/16 11/17/16 11/17/16 11/17/16 07:00 15:00 23:00 07:00 15:00 23:00 Intake Total 395 ml 700 ml Output Total 550 ml 325 ml Balance -155 ml 375 ml Intake IV Total 395 ml 700 ml Output Urine Total 550 ml 325 ml Stool Total 0 ml Result Diagram: 11/17/16 0550 11/17/16 0550 Imaging Last Impressions Head CT 11/16/16 0000 Signed Impressions: Service Date/Time: Wednesday, November 16, 2016 09:40 - CONCLUSION: Ischemic changes negative for an acute process. Adam Trent MD FACR Cervical Spine CT 11/16/16 0000 Signed Impressions: Service Date/Time: Wednesday, November 16, 2016 09:40 - CONCLUSION: 1. No acute fracture or subluxation. 2. Multilevel degenerative spondylosis with variable degrees of facet arthropathy and neural foraminal stenosis, as above. 3. Incidental note of a markedly enlarged right thyroid lobe. This may be further evaluated with ultrasound examination of an outpatient basis as clinically warranted. Kenneth Bruno MD Carotid Artery Ultrasound 11/16/16 Signed Impressions: Service Date/Time: Wednesday, November 16, 2016 10:48 - CONCLUSION: Negative examination for a hemodynamically significant carotid stenosis. Minimal soft plaque is noted on the right. CT angiography may be of benefit. Adam Trent MD Objective Remarks GENERAL: lethargic and unable to follow commands SKIN: Warm and dry. HEAD: Normocephalic. EYES: No scleral icterus. No injection or drainage. NECK: Supple, trachea midline. No JVD or lymphadenopathy. CARDIOVASCULAR: Regular rate and rhythm without murmurs, gallops, or rubs. RESPIRATORY: Breath sounds decrease bilaterally. No accessory muscle use. GASTROINTESTINAL: Abdomen soft, non-tender, nondistended. MUSCULOSKELETAL: No cyanosis, or edema. BACK: Nontender without obvious deformity. No CVA tenderness. A/P Problem List: (1) TIA (transient ischemic attack) ICD Code: G45.9 Status: Acute (2) Encephalopathy, metabolic ICD Code: G93.41 Status: Acute (3) Toxic metabolic encephalopathy ICD Code: G92 Status: Acute (4) NSTEMI (non-ST elevated myocardial infarction) ICD Code: I21.4 Status: Acute (5) Hypertension ICD Code: I10 Status: Acute (6) CAD (coronary artery disease) ICD Code: I25.10 Status: Acute (7) Atrial fibrillation ICD Code: I48.91 Status: Acute Assessment and Plan 86-year-old man with TIA/stroke alert/metabolic encephalopathy -As patient unable to take by mouth including aspirin and Eliquis, currently on heparin drip -Start statin therapy when patient able to take by mouth -NIHSS, Neuro checks, Monitor on telemetry -PT/OT/ST evaluations, consult rehab medicine -allow permissive HTN, IV Vasotec and IV labetalol if SBP >220 - lipid profile and HgbA1c noted -carotid U/S, 2-D echo and EEG noted -Head CT 11/16/16 noted and review by me with Ischemic changes negative for an acute process. -Unable to obtain brain MRI/MRA secondary to history of AICD -Unable to obtain CTA secondary to worsening renal function -Appreciate input from neurology -UDS, UA as well as ammonia level all within normal limits Non-ST elevation [place] History of atrial fibrillation History of AICD placement History of CHF ACS ruled out per protocol with serial cardiac enzyme and EKGs Currently on heparin drip and was transitioned to by mouth Eliquis when patient able to tolerate Continue outpatient medications except antihypertensive medications Appreciate input from cardiology however patient is not currently a candidate for left heart catheterization 2-D echo pending History of hypertension: Continue to allow for permissive hypertension Acute renal failure Prerenal, secondary to dehydration Gentle IV fluid hydration and monitor BUN and creatinine. Avoid all nephrotoxic drugs History of dementia Resume outpatient medications when able to tolerate by mouth Will consult palliative care medicine as patient currently with a very poor prognostic Aime Hendricks MD Nov 17, 2016 14:00
--- NOTE | 2016-11-17 14:41 | EKG ---
Date Performed: 11/16/2016 Time Performed: 10:35:10 PTAGE: 86 years EKG: ELECTRONIC VENTRICULAR PACEMAKER WITH UNDERLYING ATRIAL FIBRILLATION. ABNORMAL RHYTHM ECG PREVIOUS TRACING : 10/07/2015 12.25 Since previous tracing, no significant change noted DOCTOR: Santiago Sears Interpretating Date/Time 11/17/2016 14:51:05
--- NOTE | 2016-11-17 14:43 | EKG ---
Date Performed: 11/16/2016 Time Performed: 21:07:40 PTAGE: 86 years EKG: Electronically paced rhythm with underlying atrial fibrillation Abnormal ECG PREVIOUS TRACING : 11/16/2016 10.35 DOCTOR: Santiago Sears Interpretating Date/Time 11/17/2016 14:41:15
--- NOTE | 2016-11-17 15:27 | PD.CONS ---
Consult Service Palliative Care Consult Requested By Dr. Hendricks . Primary Care Physician Unknown Reason for Consultation a. To assist with evaluation and management of symptoms including: confusion , dysphagia, pain b. To assist medical decision maker(s) with: better understanding of current medical conditions; weighing benefits/burdens of medical treatment options; making medical treatment decisions. HPI History of Present Illness This 86-year-old man presented to the ED via EMS on 11/16/16 for altered mental status and facial droop. Onset was one hour prior to arrival. Patient able to state name other history Limited. EMS team reported his legs went from underneath him and there was report of a possible fall. * ED course: Stable during ED course. CT head= ischemic changes negative for acute process, no hemorrhage identified. Case discussed with neurology Dr. Garrido patient already on Eliquis, symptoms improving, no indication for TPA. NIH Stroke scale 3. Patient with mild dysarthria, drowsiness. 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 troponin I 3.42, BNP 651, BUN/creatinine 43/2.8. Also hypertensive : BP 186/ 124 //serial cardiac enzymes pending. EKG shows paced rhythm. Admitted for further evaluation and management. Cardiology, neurology consulted. * 2-D echo EF 5560 percent, left atrial size mildly dilated. Moderate mitral calcification. Mild mitral regurg. Diastolic dysfunction. Very large. Bioprosthetic aortic valve without stenosis or regurgitation. Mild tricuspid regurg. * Neurology evaluated: Pupils noted asymmetrical. No facial droop. No neglect. Lethargic, oriented 1, otherwise confused. Follows simple commands. Note CT brain appears to be old watershed distribution stroke in the left hemisphere involving left frontal areas as well as posterior occipital parietal area and no acute changes. Continue with aspirin, eliquis, MRI contradicted due to implanted devices. Echo, carotid ultrasound pending. EEG pending. CT cervical spine with no acute fracture. Multilevel degenerative spondylosis. Incidental finding markedly enlarged right thyroid lobe-- Consider further evaluation with ultrasound. * Cardiology evaluated patient with no cardiac complaints, elevated troponin could be acute stroke versus atypical presentation ACS, given change in neurological status acute stroke more likely. Not a candidate for further invasive cardiac management- no LHC. Defers anticoagulation to neurology. Recommends continued ischemic directed therapy for medical management of CAD with ASA, beta blockers. Heparin drip if okay by neuro. Hold Gelacio due to KATIANA. (Appears likely has underlying CKD review of available records from 2009 with elevated BUN and creatinine 43/2.2015 cardiac clearance evaluation notes BUN 36/creatinine 1.80 ) * 11/17 continues to have altered mental status; not an MRI/MRA candidate. Presumed CVA. Not a candidate for further cardiac evaluation. Cannot complete CTA due to worsened renal function. UA negative. Ammonia <10. Troponin 3.92-- >3.88. BUN 40/creatinine 2.59. Crockett to have overall poor prognosis given underlying history and current clinical findings. Palliative care consulted to assist with clarification of goals of treatment. Patient seen in room no family present. Patient has with eyes closed but seems awake. Verbalizing my back my back hurts help. Does not verbalize answers to other questions. Is noted to be hard of hearing I did shout very loudly in the region of his ears he does not answer other questions nor does he follow any commands for me. I do observe moving all 4 extremities with what appears to be reasonable strength though limited ability to assess this. Following exam call to patient son spoke with him at length. Discussed at length with primary nurse as well as medical attending Dr. Hendricks. Function/Cognitive Trajectory Lives in a private home setting with live-in significant other who helped manage his medications and day to day household management. He was still ambulatory. Good remote memory, still knew his family though some general cognitive decline over the past 2 years and poor short term memory. . Review of Systems ROS Limitations: Altered Mental Status (confused/minimally verbal), Hearing Impaired (very hard of hearing per son) Constitutional: COMPLAINS OF: Pain (back pain per patient, chronic back pain per son) Musculoskeletal: COMPLAINS OF: Back pain (chronic for many years) Psychiatric: COMPLAINS OF: Confusion (intermittent mild dementia and confusion , more severe at this admission) Past Family Social History Coded Allergies: HMG-CoA Reductase Inhibitors (Verified Allergy, Severe, 10/07/15) MRI PRECAUTION (Verified Adverse Reaction, Severe, PACEMAKER (KD) 12/21/09 , 01/01/10) Past Medical History Dementia "mild" Atrial fibrillation - on eliquis Severe Aortic stenosis- s/p [facility] 2015 CAD-status post RCA stent 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 Past Surgical History Cardiac catheter, Cardiac stents 2016 Cataract removal Prostatectomy Medtronic dual-chamber pacemaker insertion Femoral popliteal bypass . Reported Medications Brilinta 90 Mg Tab (Ticagrelor) 90 Mg Tab 90 Mg PO BID 30 Days Norvasc (Amlodipine Besylate) 5 Mg Tab 10 Mg PO DAILY 30 Days Ecotrin (Aspirin) 81 Mg Tabec 81 Mg PO DAILY 30 Days Allopurinol 300 Mg Tab 300 Mg PO DAILY Prilosec Otc (Omeprazole Magnesium) 20 Mg Tab 20 Mg PO DAILY Imdur (Isosorbide Mononitrate) 60 Mg Tabcr 60 Mg PO DAILY Apresoline (Hydralazine HCl) 10 Mg Tab 10 Mg PO TID Lopressor (Metoprolol Tartrate) 100 Mg Tab 100 Mg PO BID Nitrostat (Nitroglycerin) 0.4 Mg Subl 0.4 Mg SL PRN 1 TAB SL EVERY 5 MINS X 3 PRN CHEST PAIN . Current Medications Medications (Trade) Dose Ordered Sig/Santiago Route Start Time Stop Time Status Last Admin (NS 1000 ml Inj) 1,000 ml @ 70 mls/hr [id number] IV 11/16/16 11:00 11/17/16 01:18 (Aspirin Chew) 81 mg DAILY PO 11/17/16 09:00 (NovoLOG SUPPLEMENTAL SCALE) 1 ACHS SQ 11/16/16 11:00 (D50w (Vial) Inj) 50 ml UNSCH PRN IV PUSH 11/16/16 10:15 (Glucagon Inj) 1 mg UNSCH PRN OTHER 11/16/16 10:15 (NS Flush) 2 ml UNSCH PRN IV FLUSH 11/16/16 11:30 (NS Flush) 2 ml BID IV FLUSH 11/16/16 21:00 11/16/16 20:52 (Tylenol) 650 mg Q4H PRN PO 11/16/16 11:30 (Zofran Inj) 4 mg Q6H PRN IVP 11/16/16 11:30 (Tylenol) 650 mg Q6H PRN PO 11/16/16 11:30 (Narcan Inj) 0.4 mg UNSCH PRN IV 11/16/16 11:30 (Senokot) 17.2 mg Q12H PRN PO 11/16/16 11:30 (Eliquis) 2.5 mg BID PO 11/16/16 21:00 (Lasix) 40 mg DAILY PO 11/17/16 09:00 (Imdur) 60 mg DAILY@07 PO 11/17/16 07:00 Hydralazine HCl 20 mg 20 mg Q4H PRN IV PUSH 11/16/16 12:15 11/17/16 05:25 (Heparin-D5W Inj) 250 ml @ 0 mls/hr TITRATE IV 11/16/16 23:15 11/16/16 23:17 (Heparin Inj) 5,000 units UNSCH PRN IV 11/16/16 23:15 (Heparin Inj) 2,500 units UNSCH PRN IV 11/16/16 23:15 Family History 1 brother still living. Other brothers secondary to cardiac problems, 1 brother in his 40s, 1 in his 60s, and 1 in his 70s. . Substance Use Tobacco: Former smoker quit > 20 years ago Alcohol: Previous occasional wine Prescription med abuse: None per EMR Illicits: None per EMR . Psychosocial History , 1st many years ago, remarried later his second . Has 2 adult sons. Son Lemuel designated first [facility] his primary support. Also has a significant other with significant health concerns and issues of her own. She lived with him and helped him manage medications, and the household as he was no longer able to attend to his own needs in the home. Served in the [employer] during the [place] era though did not see active combat. 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 . Spiritual/Cultural Factors Mormon jhoan Living Will: Copy in medical record Health Care Surrogate: Copy in medical record Date completed: adv directive dated 2012 Health Care Surrogate(s): 1st, Lemuel Lopez ([place]) 2nd Alex Lopez ([place]) Documented care wishes: Advanced directive document directs healthcare providers withhold or withdraw treatment and the presence of an irreversible condition or loss of consciousness which he is not expected to regain consciousness, or likely risks would outweigh benefits of treatments. Ethical and Legal Issues Patient currently with altered mental status is not clear he will regain ability to participate in decision-making. As healthcare surrogate designating Alex Hdez as healthcare surrogate. Physical Exam Vital Signs Date Time Temp Pulse Resp B/P Pulse Ox O2 Delivery O2 Flow Rate FiO2 11/17/16 14:00 59 11/17/16 13:00 59 11/17/16 12:00 59 11/17/16 11:00 59 11/17/16 11:00 98.9 59 16 155/71 94 11/17/16 10:48 95 Nasal Cannula 3.50 11/17/16 10:00 60 11/17/16 09:00 60 11/17/16 08:00 59 11/17/16 07:00 98.8 59 16 163/69 94 11/17/16 07:00 94 Nasal Cannula 2.00 11/17/16 07:00 63 11/17/16 06:26 60 11/17/16 05:50 60 11/17/16 04:25 60 11/17/16 04:18 99.5 60 178/81 95 11/17/16 03:48 60 11/17/16 02:00 60 11/17/16 01:00 60 11/17/16 00:00 58 11/16/16 23:28 90 Nasal Cannula 2.00 11/16/16 23:00 59 11/16/16 23:00 99.8 60 179/77 93 11/16/16 22:00 60 11/16/16 21:00 60 11/16/16 20:00 60 11/16/16 19:00 99.3 60 141/78 95 11/16/16 19:00 59 11/16/16 19:00 Nasal Cannula 2.00 21 11/16/16 18:00 59 11/16/16 17:00 58 11/16/16 16:00 58 11/16/16 15:00 59 11/16/16 15:00 98.0 60 20 149/73 92 11/16/16 11/17/16 19:00 07:00 Intake Total 395 ml 700 ml Output Total 550 ml 325 ml Balance -155 ml 375 ml Intake IV Total 395 ml 700 ml Output Urine Total 550 ml 325 ml Stool Total 0 ml Exam CONSTITUTIONAL/GENERAL: This is an adequately nourished elderly patient, confused and moaning "my back" at times. TUBES/LINES/DRAINS: Peripheral IV wrapped with gauze left upper extremity, Villanueva catheter, SCDs, nasal cannula. SKIN: No jaundice, rashes, or lesions. Few areas Ecchymoses on upper extremities. No wounds seen anteriorly. Skin temperature appropriate. Not diaphoretic. HEAD: Atraumatic. Normocephalic. EYES: Pupils= left pinpoint, right 3 mm, slight reaction to light. No scleral icterus. No injection or drainage. Fundi not examined. ENT: Very hard of hearing. Nose without bleeding or purulent drainage. His does not open mouth for oropharynx exam. NECK: Trachea midline. Supple, nontender CARDIOVASCULAR: regular rate and rhythm. Peripheral pulses symmetric. RESPIRATORY/CHEST: Symmetric, unlabored respirations. On 3.5 L nasal cannula. Clear to auscultation. Breath sounds equal bilaterally. GASTROINTESTINAL: Abdomen soft, non-tender, nondistended. No palpable masses. No guarding. Bowel sounds present. GENITOURINARY: Without palpable bladder distension. Villanueva catheter in place. MUSCULOSKELETAL: Extremities without clubbing, cyanosis, or edema. No joint effusion noted. No mottling or clubbing. NEUROLOGICAL: Eyes closed though appears awake for the most part. Calling out "my back, help my back". Does not answer any other questions for me including date of , family names etc. Does not follow any commands for me did speak very loudly and directly in the region of his ear due to [place]. Observed to move all 4 extremities spontaneously with no obvious deficit. No obvious facial droop. PSYCHIATRIC: Mild restlessness, repetitive "my back" Diagnostic Tests Laboratory Laboratory Tests Test 11/16/16 11/16/16 11/16/16 11/16/16 09:30 09:49 10:50 12:35 White Blood Count 9.2 TH/MM3 (4.0-11.0) Red Blood Count 4.61 MIL/MM3 (4.50-5.90) Hemoglobin 13.2 GM/DL (13.0-17.0) Bedside Hemoglobin 13.9 G/DL (12.0-17.0) Hematocrit 40.0 % (39.0-51.0) Bedside Hematocrit 41.0 % (38.0-51.0) Mean Corpuscular Volume 86.6 FL (80.0-100.0) Mean Corpuscular Hemoglobin 28.7 PG (27.0-34.0) Mean Corpuscular Hemoglobin 33.1 % Concent (32.0-36.0) Red Cell Distribution Width 15.2 % (11.6-17.2) Platelet Count 216 TH/MM3 (150-450) Mean Platelet Volume 9.6 FL (7.0-11.0) Neutrophils (%) (Auto) 80.6 % (16.0-70.0) Lymphocytes (%) (Auto) 9.0 % (9.0-44.0) Monocytes (%) (Auto) 8.6 % (0.0-8.0) Eosinophils (%) (Auto) 1.2 % (0.0-4.0) Basophils (%) (Auto) 0.6 % (0.0-2.0) Neutrophils # (Auto) 7.4 TH/MM3 (1.8-7.7) Lymphocytes # (Auto) 0.8 TH/MM3 (1.0-4.8) Monocytes # (Auto) 0.8 TH/MM3 (0-0.9) Eosinophils # (Auto) 0.1 TH/MM3 (0-0.4) Basophils # (Auto) 0.1 TH/MM3 (0-0.2) CBC Comment DIFF FINAL Differential Comment Prothrombin Time 12.3 SEC (9.8-11.6) Prothromb Time International 1.1 RATIO Ratio Activated Partial 32.0 SEC Thromboplast Time (24.3-30.1) Fibrinogen 429 mg/dL (227-377) Bedside Sodium 139 MMOL/L (138-146) Bedside Potassium 3.5 MMOL/L (3.5-4.9) Bedside Chloride 103 MMOL/L (98-109) Bedside Blood Urea Nitrogen 43 MG/DL (8-26) Bedside Creatinine 2.8 MG/DL (0.8-1.3) Bedside Glucose 178 MG/DL (60-95) Hemoglobin A1c 6.3 % (4.3-6.0) Total Creatine Kinase 365 U/L (39-308) Creatine Kinase MB 11.6 NG/ML (0.5-3.6) Creatine Kinase MB % 3.2 % (0.0-4.0) Troponin I 3.42 NG/ML (0.02-0.05) B-Type Natriuretic Peptide 651 PG/ML (0-100) Blood Type B POSITIVE Antibody Screen NEGATIVE Blood Bank Comment Urine Color YELLOW (YELLW/STRAW) Urine Turbidity CLEAR (CLEAR) Urine pH 5.5 (5.0-8.5) Urine Specific Ryan 1.010 (1.002-1.035) Urine Protein 30 mg/dL (NEG-TRACE) Urine Glucose (UA) NEG mg/dL (NEG) Urine Ketones NEG mg/dL (NEG) Urine Occult Blood NEG (NEG) Urine Nitrite NEG (NEG) Urine Bilirubin NEG (NEG) Urine Urobilinogen LESS THAN 2.0 MG/DL (LESS THAN 2.0) Urine Leukocyte Esterase NEG (NEG) Urine RBC 1 /hpf (0-3) Urine WBC LESS THAN 1 /hpf (0-5) Urine Amorphous Sediment OCC Urine Bacteria RARE /hpf (NONE) Urine Hyaline Casts 1 /lpf (RARE) Urine Mucus FEW /lpf (OCC) Microscopic Urinalysis Comment Urine Opiates Screen NEG (NEG) Urine Barbiturates Screen NEG (NEG) Urine Amphetamines Screen NEG (NEG) Urine Benzodiazepines Screen NEG (NEG) Urine Cocaine Screen NEG (NEG) Urine Cannabinoids Screen NEG (NEG) Ammonia LESS THAN 10 MCMOL/L (11-32) Test 11/16/16 11/16/16 11/17/16 11/17/16 13:53 22:24 05:50 11:46 Total Creatine Kinase 358 U/L 270 U/L (39-308) (39-308) Creatine Kinase MB 10.6 NG/ML (0.5-3.6) Creatine Kinase MB % 3.0 % (0.0-4.0) Troponin I 3.92 NG/ML 3.88 NG/ML (0.02-0.05) (0.02-0.05) Total Bilirubin 1.3 MG/DL 1.3 MG/DL (0.2-1.0) (0.2-1.0) Direct Bilirubin 0.6 MG/DL (0.0-0.2) Indirect Bilirubin 0.7 MG/DL (0.0-0.8) Aspartate Amino Transf 46 U/L (15-37) 46 U/L (15-37) (AST/SGOT) Alanine Aminotransferase 28 U/L (12-78) 28 U/L (12-78) (ALT/SGPT) Alkaline Phosphatase 126 U/L 134 U/L (45-117) (45-117) Total Protein 6.7 GM/DL 7.0 GM/DL (6.4-8.2) (6.4-8.2) Albumin 3.1 GM/DL 3.2 GM/DL (3.4-5.0) (3.4-5.0) White Blood Count 9.6 TH/MM3 (4.0-11.0) Red Blood Count 4.75 MIL/MM3 (4.50-5.90) Hemoglobin 13.6 GM/DL (13.0-17.0) Hematocrit 41.3 % (39.0-51.0) Mean Corpuscular Volume 86.8 FL (80.0-100.0) Mean Corpuscular Hemoglobin 28.5 PG (27.0-34.0) Mean Corpuscular Hemoglobin 32.9 % Concent (32.0-36.0) Red Cell Distribution Width 15.2 % (11.6-17.2) Platelet Count 213 TH/MM3 (150-450) Mean Platelet Volume 10.1 FL (7.0-11.0) Neutrophils (%) (Auto) 77.2 % (16.0-70.0) Lymphocytes (%) (Auto) 12.7 % (9.0-44.0) Monocytes (%) (Auto) 9.4 % (0.0-8.0) Eosinophils (%) (Auto) 0.3 % (0.0-4.0) Basophils (%) (Auto) 0.4 % (0.0-2.0) Neutrophils # (Auto) 7.4 TH/MM3 (1.8-7.7) Lymphocytes # (Auto) 1.2 TH/MM3 (1.0-4.8) Monocytes # (Auto) 0.9 TH/MM3 (0-0.9) Eosinophils # (Auto) 0.0 TH/MM3 (0-0.4) Basophils # (Auto) 0.0 TH/MM3 (0-0.2) CBC Comment DIFF FINAL Differential Comment Activated Partial 59.5 SEC 69.9 SEC Thromboplast Time (24.3-30.1) (24.3-30.1) Sodium Level 142 MEQ/L (136-145) Potassium Level 3.6 MEQ/L (3.5-5.1) Chloride Level 106 MEQ/L (98-107) Carbon Dioxide Level 23.1 MEQ/L (21.0-32.0) Anion Gap 13 MEQ/L (5-15) Blood Urea Nitrogen 40 MG/DL (7-18) Creatinine 2.59 MG/DL (0.60-1.30) Estimat Glomerular Filtration 24 ML/MIN (>89) Rate Random Glucose 125 MG/DL (74-106) Hemoglobin A1c 6.3 % (4.3-6.0) Calcium Level 9.5 MG/DL (8.5-10.1) Triglycerides Level 100 MG/DL (42-150) Cholesterol Level 168 MG/DL (120-200) LDL Cholesterol 116 MG/DL (0-99) HDL Cholesterol 32.2 MG/DL (40.0-60.0) Cholesterol/HDL Ratio 5.21 RATIO Result Diagram: 11/17/16 0550 11/17/16 0550 Imaging Last Impressions Head CT 11/16/16 0000 Signed Impressions: Service Date/Time: Wednesday, November 16, 2016 09:40 - CONCLUSION: Ischemic changes negative for an acute process. Adam Trent MD FACR Cervical Spine CT 11/16/16 0000 Signed Impressions: Service Date/Time: Wednesday, November 16, 2016 09:40 - CONCLUSION: 1. No acute fracture or subluxation. 2. Multilevel degenerative spondylosis with variable degrees of facet arthropathy and neural foraminal stenosis, as above. 3. Incidental note of a markedly enlarged right thyroid lobe. This may be further evaluated with ultrasound examination of an outpatient basis as clinically warranted. Kenneth Bruno MD Carotid Artery Ultrasound 11/16/16 0000 Signed Impressions: Service Date/Time: Wednesday, November 16, 2016 10:48 - CONCLUSION: Negative examination for a hemodynamically significant carotid stenosis. Minimal soft plaque is noted on the right. CT angiography may be of benefit. Adam Trent MD Patient/Family Conference Present at Family Conference: Anton Hdez via phone Family Conference Time (mins): 25 (minutes) Family Conference Location: Telephone Issues Discussed: Spoke with anton Hdez, GARCÍA, via phone approximately 2024 minutes. Discussion included the following: * Palliative care role, purpose, approach * Additional medical, psychosocial, and spiritual history * Patients general health, functional status, and cognitive changes in the months leading up to the current hospitalization * Patient/family understanding of the current medical problems * Patient/family understanding of prognosis; review multiple comorbidities and very limited treatment options going forward supportive care with limited benefit, patient very high risk for further complications and decline in current debilitated state * Patients goals of care as best understood from advance directives and/or conversations and/or values * Current medical treatment options and benefits/burdens of those options- review of limited ability for any further diagnostics or treatment because of small underlying conditions including cardiac, and significant kidney disease * Legal decision makers per [facility] directive * CODE STATUS-. Lemuel is Certain that the patient would not want to undergo resuscitation at this point given his underlying condition and recent trajectory of decline ; elects DNR * Likely scenarios comparing ongoing aggressive care with a transition to comfort measures only-very briefly and gently explore that patient is high risk for continued decline given inability to aggressively further intervene, and the options going forward would be continue supportive measures which are limited versus transition to comfort focus. * Questions answered to the best of my ability * Palliative care contact information provided Lemuel seems to have a reasonable understanding of conditions and overall prognosis. He is going to try to bring patient hearing aid in later today which may help him understand and communicate a little better. He is going to bring his brother and who is secondary healthcare surrogate to see patient. He wishes to watch patient over the next day, speak again tomorrow with palliative and/or medical team regarding conditions, prognosis and potential hospice in transition to comfort option. For now DNR otherwise continue current treatments , more discussion regarding goals of treatment planned for tomorrow Monday. Assessment and Plan Disease Oriented Problem List: (1) CAD (coronary artery disease) (2) Hypertension (3) NSTEMI (non-ST elevated myocardial infarction) (4) Atrial fibrillation (5) Altered mental status (6) TIA (transient ischemic attack) Comment: Possible CVA unable to obtain MRI (7) Encephalopathy, metabolic (8) Acute renal failure Symptom Scale: (1) Confusion 0-10 Scale: Unable to quantify (2) Dysphagia 0-10 Scale: Unable to quantify (3) Pain 0-10 Scale: Unable to quantify Comment: Long history chronic back pain for many years Pertinent Non-Medical Issues Psychosocial:, 1st many years ago, remarried later his second . Has 2 adult sons. Son Lemuel designated first [facility] his primary support. Also has a significant other with significant health concerns and issues of her own. She lived with him and helped him manage medications, and the household as he was no longer able to attend to his own needs in the home. Served in the [employer] during the [place] era though did not see active combat. 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 Spiritual: Mormon jhoan Legal:Patient currently with altered mental status is not clear he will regain ability to participate in decision-making. As healthcare surrogate designating LemuelAlex as healthcare surrogate. Ethical issues impacting care: Important Contacts Lemuel Lopez ([place]) [phone] Alex Lopez ([place]) [phone] . Code Status: Full Code Plan Legal decision maker:Patient currently with altered mental status is not clear he will regain ability to participate in decision-making, additionally has history of mild dementia. As healthcare surrogate designating Dexter Hdezne Patross as healthcare surrogate. Goals: Met with some Lemuel who is healthcare surrogate via phone today. Lemuel seems to have a reasonable understanding of conditions and overall prognosis. He is going to try to bring patient hearing aid in later today which may help him understand and communicate a little better. He is going to bring his brother and who is secondary healthcare surrogate to see patient. He wishes to watch patient over the next day, speak again tomorrow with palliative and/or medical team regarding conditions, prognosis and potential hospice/ transition to comfort option. For now DNR otherwise continue current treatments , more discussion regarding goals of treatment planned for tomorrow Monday. CODE STATUS: DNR SYMPTOMS: --Confusion-history of mild dementia. Currently admitted for possible TIA versus CVA--ultra mental status unable to obtain MRI due to implanted devices. Continues to be lethargic and confused. 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 Medical attending his added IV Tylenol; cautious use of opiates at this point given high risk for continued neurological decline; if goals comfort oriented would benefit from low-dose opiates prn --Dysphagia-high risk for dysphagia/aspiration secondary to possible CVA, altered mental status Palliative care will continue to follow during hospital course as condition evolves, to assist patient/decision-maker with understanding of medical conditions, weighing benefits/burdens of treatment options, for clarification of goals of treatment. Additionally will assist with any symptoms of palliative concern Thank you for the opportunity to participate in the care of Mr. Lopez. Attestation To help prompt me to consider important information that might be impacting today's encounter and assessment, information from prior notes written by myself or my colleagues may have been "brought forward" into today's note. My signature on this note, however, is an attestation that I personally performed the exam, history, and/or decision-making noted today, and, unless otherwise indicated, the interactions with patient, family, and staff as well as the review of records all occurred today. I also attest that the listed assessment and stated plan reflect my best clinical judgment today based on the combination of historical information, prior notes, and today's exam/ interactions. When time spent is documented, it refers only to time spent today by the signer, or if indicated, combined time spent today by collaborating physician/nurse practitioner. Delia Stuart Nov 17, 2016 15:27 Delia Stuart Nov 17, 2016 15:27
--- NOTE | 2016-11-17 15:29 | HHI.PR ---
Addendum to Inpatient Note Addendum Reason: Additional Documentation Additional Information The Case was discussed with patient's Son Lemuel @ [phone] and he is looking forward speaking to palliative care medicine Aime Hendricks MD Nov 17, 2016 15:29
[2016-11-17] MEDS: ACETAMINOPHEN 1000 MG/100 ML VIAL IV SCH ×2 (15:53→21:10)
[2016-11-17] MEDS ORDERED: LORazepam 2 MG/ML VIAL IV ONE (18:45)
--- NOTE | 2016-11-17 19:41 | HHI.PR ---
Review/Management Diagnosis probalbe cva vs TIA--exam is stable afib pacemaker h/o TAVR agree with iv heparin Plan continue iv heparin recommend group home anticoagulation with oral anticoagulant due to afib. Diagnosis/Plan: Subjective Subjective Comments No acute events reported--reportedly more communicative today On iv heparin Active Medications Current Medications Medications (Trade) Dose Ordered Sig/Santiago Route Start Time Stop Time Status Last Admin (NS 1000 ml Inj) 1,000 ml @ 70 mls/hr [id number] IV 11/16/16 11:00 11/17/16 15:44 (Aspirin Chew) 81 mg DAILY PO 11/17/16 09:00 (NovoLOG SUPPLEMENTAL SCALE) 1 ACHS SQ 11/16/16 11:00 (D50w (Vial) Inj) 50 ml UNSCH PRN IV PUSH 11/16/16 10:15 (Glucagon Inj) 1 mg UNSCH PRN OTHER 11/16/16 10:15 (NS Flush) 2 ml UNSCH PRN IV FLUSH 11/16/16 11:30 (NS Flush) 2 ml BID IV FLUSH 11/16/16 21:00 11/16/16 20:52 (Tylenol) 650 mg Q4H PRN PO 11/16/16 11:30 (Zofran Inj) 4 mg Q6H PRN IVP 11/16/16 11:30 (Tylenol) 650 mg Q6H PRN PO 11/16/16 11:30 (Narcan Inj) 0.4 mg UNSCH PRN IV 11/16/16 11:30 (Senokot) 17.2 mg Q12H PRN PO 11/16/16 11:30 (Eliquis) 2.5 mg BID PO 11/16/16 21:00 (Lasix) 40 mg DAILY PO 11/17/16 09:00 (Imdur) 60 mg DAILY@07 PO 11/17/16 07:00 Hydralazine HCl 20 mg 20 mg Q4H PRN IV PUSH 11/16/16 12:15 11/17/16 15:06 (Heparin-D5W Inj) 250 ml @ 0 mls/hr TITRATE IV 11/16/16 23:15 11/16/16 23:17 (Heparin Inj) 5,000 units UNSCH PRN IV 11/16/16 23:15 (Heparin Inj) 2,500 units UNSCH PRN IV 11/16/16 23:15 (Ofirmev Inj) 1,000 mg Q6H IV 11/17/16 16:00 11/18/16 10:01 11/17/16 15:53 Allergies Allergies Coded Allergies HMG-CoA Reductase Inhibitors (Verified Allergy, Severe, 10/07/15) MRI PRECAUTION (Verified Adverse Reaction, Severe, PACEMAKER (KD) 12/21/09, 03/04) Exam I&O / VS 11/16/16 11/16/16 11/17/16 15:00 23:00 07:00 Intake Total 395 ml 700 ml Output Total 550 ml 325 ml Balance -155 ml 375 ml Intake IV Total 395 ml 700 ml Output Urine Total 550 ml 325 ml Stool Total 0 ml Vital Signs Date Time Temp Pulse Resp B/P Pulse Ox O2 Delivery O2 Flow Rate FiO2 11/17/16 18:48 59 11/17/16 17:00 60 11/17/16 16:00 60 11/17/16 15:46 160/66 11/17/16 15:00 98.4 59 20 188/86 92 11/17/16 15:00 60 11/17/16 14:00 59 11/17/16 13:00 59 11/17/16 12:00 59 11/17/16 11:00 59 11/17/16 11:00 98.9 59 16 155/71 94 11/17/16 10:48 95 Nasal Cannula 3.50 11/17/16 10:00 60 11/17/16 09:00 60 11/17/16 08:00 59 11/17/16 07:00 98.8 59 16 163/69 94 11/17/16 07:00 94 Nasal Cannula 2.00 11/17/16 07:00 63 11/17/16 06:26 60 11/17/16 05:50 60 11/17/16 04:25 60 11/17/16 04:18 99.5 60 178/81 95 11/17/16 03:48 60 11/17/16 02:00 60 11/17/16 01:00 60 11/17/16 00:00 58 11/16/16 23:28 90 Nasal Cannula 2.00 11/16/16 23:00 59 11/16/16 23:00 99.8 60 179/77 93 11/16/16 22:00 60 11/16/16 21:00 60 11/16/16 20:00 60 Exam Comments lethargic but easy to arouse. follows commands. He is hard of hearing and difficult to evaluate Cn normal--no facial droop Motor moves BUE and BLE equally Objective Radiology Results carotid US--no significant stenosis Micro and Labs Laboratory Tests Test 11/16/16 11/17/16 11/17/16 22:24 05:50 11:46 Total Bilirubin 1.3 1.3 Direct Bilirubin 0.6 Indirect Bilirubin 0.7 Aspartate Amino Transf 46 46 (AST/SGOT) Alanine Aminotransferase 28 28 (ALT/SGPT) Alkaline Phosphatase 126 134 Total Creatine Kinase 270 Troponin I 3.88 Total Protein 6.7 7.0 Albumin 3.1 3.2 White Blood Count 9.6 Red Blood Count 4.75 Hemoglobin 13.6 Hematocrit 41.3 Mean Corpuscular Volume 86.8 Mean Corpuscular Hemoglobin 28.5 Mean Corpuscular Hemoglobin 32.9 Concent Red Cell Distribution Width 15.2 Platelet Count 213 Mean Platelet Volume 10.1 Neutrophils (%) (Auto) 77.2 Lymphocytes (%) (Auto) 12.7 Monocytes (%) (Auto) 9.4 Eosinophils (%) (Auto) 0.3 Basophils (%) (Auto) 0.4 Neutrophils # (Auto) 7.4 Lymphocytes # (Auto) 1.2 Monocytes # (Auto) 0.9 Eosinophils # (Auto) 0.0 Basophils # (Auto) 0.0 CBC Comment DIFF FINAL Differential Comment Activated Partial 59.5 69.9 Thromboplast Time Sodium Level 142 Potassium Level 3.6 Chloride Level 106 Carbon Dioxide Level 23.1 Anion Gap 13 Blood Urea Nitrogen 40 Creatinine 2.59 Estimat Glomerular Filtration 24 Rate Random Glucose 125 Hemoglobin A1c 6.3 Calcium Level 9.5 Triglycerides Level 100 Cholesterol Level 168 LDL Cholesterol 116 HDL Cholesterol 32.2 Cholesterol/HDL Ratio 5.21 Michael Garrido PhD Nov 17, 2016 19:41
[2016-11-18] VITALS (22 sets, daily range): BP systolic 177–199; BP diastolic 65–91; PULSE 58–89; RESP 17–24; TEMP 98.4–98.9; O2SAT 93–96
[2016-11-18] MEDS: HEPARIN 25,000 UNITS-D5W 250 ML - PREMIX IV SCH (00:52)
[2016-11-18] MEDS ORDERED: LORazepam 2 MG/ML VIAL IV PUSH ONE (02:15)
[2016-11-18] MEDS: ACETAMINOPHEN 1000 MG/100 ML VIAL IV SCH ×2 (03:56→09:26)
[2016-11-18] MEDS: hydrALAZINE HCL 20 MG/ML VIAL IV PUSH PRN ×3 (04:07→14:25)
[2016-11-18 05:48] LABS: APTT (PATIENT) 53.8 SEC (24.3-30.1)
[2016-11-18] MEDS: SODIUM CHLOR 0.9% 1000 ML INJ 1,000 ML IV SCH (05:54)
[2016-11-18] MEDS: ISOSORBIDE MONONITRATE 60 MG TAB PO SCH (06:03)
[2016-11-18] MEDS: INSULIN ASPART SUPPLEMENTAL SCALE SQ SCH ×3 (06:04→15:26)
[2016-11-18] MEDS: SODIUM CHLORIDE 0.9% FLUSH 10 ML FLUSH IV FLUSH SCH (08:38)
[2016-11-18] MEDS: APIXABAN 2.5 MG TABLET PO SCH (08:38)
[2016-11-18] MEDS: ASPIRIN 81 MG CHEW TAB PO SCH (08:38)
[2016-11-18] MEDS: FUROSEMIDE 40 MG TAB PO SCH (08:39)
--- NOTE | 2016-11-18 10:34 | PD.CARD.PN ---
Subjective Subjective Remarks No CV complaints Uncooperative Neuro status unchanged since admission Objective Medications Current Medications Medications (Trade) Dose Ordered Sig/Santiago Route Start Time Stop Time Status Last Admin (NS 1000 ml Inj) 1,000 ml @ 70 mls/hr [id number] IV 11/16/16 11:00 11/18/16 05:54 (Aspirin Chew) 81 mg DAILY PO 11/17/16 09:00 (NovoLOG SUPPLEMENTAL SCALE) 1 ACHS SQ 11/16/16 11:00 (D50w (Vial) Inj) 50 ml UNSCH PRN IV PUSH 11/16/16 10:15 (Glucagon Inj) 1 mg UNSCH PRN OTHER 11/16/16 10:15 (NS Flush) 2 ml UNSCH PRN IV FLUSH 11/16/16 11:30 (NS Flush) 2 ml BID IV FLUSH 11/16/16 21:00 11/17/16 20:09 (Tylenol) 650 mg Q4H PRN PO 11/16/16 11:30 (Zofran Inj) 4 mg Q6H PRN IVP 11/16/16 11:30 (Tylenol) 650 mg Q6H PRN PO 11/16/16 11:30 (Narcan Inj) 0.4 mg UNSCH PRN IV 11/16/16 11:30 (Senokot) 17.2 mg Q12H PRN PO 11/16/16 11:30 (Eliquis) 2.5 mg BID PO 11/16/16 21:00 (Lasix) 40 mg DAILY PO 11/17/16 09:00 (Imdur) 60 mg DAILY@07 PO 11/17/16 07:00 Hydralazine HCl 20 mg 20 mg Q4H PRN IV PUSH 11/16/16 12:15 11/18/16 08:45 (Heparin-D5W Inj) 250 ml @ 0 mls/hr TITRATE IV 11/16/16 23:15 11/18/16 00:52 (Heparin Inj) 5,000 units UNSCH PRN IV 11/16/16 23:15 (Heparin Inj) 2,500 units UNSCH PRN IV 11/16/16 23:15 Vital Signs / I&O Vital Signs Date Time Temp Pulse Resp B/P Pulse Ox O2 Delivery O2 Flow Rate FiO2 11/18/16 10:11 96 Nasal Cannula 3.50 6/9/17 10:00 75 11/18/16 09:00 79 11/18/16 08:47 190/76 11/18/16 08:00 65 11/18/16 07:00 98.7 68 24 177/74 96 11/18/16 07:00 96 Nasal Cannula 3.00 11/18/16 07:00 64 11/18/16 06:08 60 11/18/16 05:05 65 11/18/16 04:00 58 11/18/16 03:00 98.6 60 199/79 96 11/18/16 03:00 59 11/18/16 02:00 70 11/18/16 01:00 62 11/18/16 00:00 60 11/17/16 23:00 98.4 60 136/63 96 11/17/16 23:00 60 11/17/16 22:00 60 11/17/16 21:00 60 11/17/16 20:00 58 11/17/16 19:00 Nasal Cannula 2.00 21 11/17/16 19:00 60 11/17/16 19:00 99.1 62 204/81 96 11/17/16 18:48 59 11/17/16 17:00 60 11/17/16 16:00 60 11/17/16 15:46 160/66 11/17/16 15:00 98.4 59 20 188/86 92 11/17/16 15:00 60 11/17/16 14:00 59 11/17/16 13:00 59 11/17/16 12:00 59 11/17/16 11:00 59 11/17/16 11:00 98.9 59 16 155/71 94 11/17/16 10:48 95 Nasal Cannula 3.50 I/O 11/17/16 11/17/16 11/17/16 11/18/16 11/18/16 11/18/16 07:00 15:00 23:00 07:00 15:00 23:00 Intake Total 700 ml 1812 ml 800 ml Output Total 325 ml 300 ml 350 ml Balance 375 ml 1512 ml 450 ml Intake IV Total 700 ml 1812 ml 800 ml Output Urine Total 325 ml 300 ml 350 ml Physical Exam GENERAL: Well-nourished, well-developed patient. SKIN: Warm and dry. HEAD: Normocephalic. EYES: No scleral icterus. No injection or drainage. NECK: Supple, trachea midline. No JVD or lymphadenopathy. CARDIOVASCULAR: Regular rate and rhythm without murmurs, gallops, or rubs. RESPIRATORY: Breath sounds equal bilaterally. No accessory muscle use. GASTROINTESTINAL: Abdomen soft, non-tender, nondistended. EXTREMITIES: No cyanosis, or edema. Laboratory Laboratory Tests Test 11/17/16 11/18/16 11:46 04:25 Activated Partial 69.9 SEC 53.8 SEC Thromboplast Time Imaging Last Impressions Head CT 11/16/16 0000 Signed Impressions: Service Date/Time: Wednesday, November 16, 2016 09:40 - CONCLUSION: Ischemic changes negative for an acute process. Adam Trent MD FACR Cervical Spine CT 11/16/16 0000 Signed Impressions: Service Date/Time: Wednesday, November 16, 2016 09:40 - CONCLUSION: 1. No acute fracture or subluxation. 2. Multilevel degenerative spondylosis with variable degrees of facet arthropathy and neural foraminal stenosis, as above. 3. Incidental note of a markedly enlarged right thyroid lobe. This may be further evaluated with ultrasound examination of an outpatient basis as clinically warranted. Kenneth Bruno MD Carotid Artery Ultrasound 11/16/16 0000 Signed Impressions: Service Date/Time: Wednesday, November 16, 2016 10:48 - CONCLUSION: Negative examination for a hemodynamically significant carotid stenosis. Minimal soft plaque is noted on the right. CT angiography may be of benefit. Adam Trent MD Assessment and Plan Problem List: (1) NSTEMI (non-ST elevated myocardial infarction) Assessment and Plan: Unfortunately mental status has not cleared up. Not an MRI candidate. ?CVA. Not a C candidate. Recs: Continue medical management Code: DNR (2) Altered mental status (3) TIA (transient ischemic attack) (4) CAD (coronary artery disease) (5) Hypertension (6) Encephalopathy, metabolic (7) Atrial fibrillation (8) Toxic metabolic encephalopathy Enrique Nicole MD Nov 18, 2016 10:34
--- NOTE | 2016-11-18 11:56 | HHI.PR ---
Subjective Remarks Follow-up non-ST elevation NV/encephalopathy/questionable stroke 11/17/16-patient seen and examined, lethargic and AMS. unable to provide any history case discussed with DONELL Fuentes 11/18/16-patient seen and examined; neuro unchanged; does not follow commands. Now DNR and Family is considering Hospice Objective Vitals Vital Signs Date Time Temp Pulse Resp B/P Pulse Ox O2 Delivery O2 Flow Rate FiO2 11/18/16 11:00 98.4 69 17 188/87 93 11/18/16 11:00 58 11/18/16 10:11 96 Nasal Cannula 3.50 11/18/16 10:00 75 11/18/16 09:00 79 11/18/16 08:47 190/76 11/18/16 08:00 65 11/18/16 07:00 98.7 68 24 177/74 96 11/18/16 07:00 96 Nasal Cannula 3.00 11/18/16 07:00 64 11/18/16 06:08 60 11/18/16 05:05 65 11/18/16 04:00 58 11/18/16 03:00 98.6 60 199/79 96 11/18/16 03:00 59 11/18/16 02:00 70 11/18/16 01:00 62 11/18/16 00:00 60 11/17/16 23:00 98.4 60 136/63 96 11/17/16 23:00 60 11/17/16 22:00 60 11/17/16 21:00 60 11/17/16 20:00 58 11/17/16 19:00 Nasal Cannula 2.00 21 11/17/16 19:00 60 11/17/16 19:00 99.1 62 204/81 96 11/17/16 18:48 59 11/17/16 17:00 60 11/17/16 16:00 60 11/17/16 15:46 160/66 11/17/16 15:00 98.4 59 20 188/86 92 11/17/16 15:00 60 11/17/16 14:00 59 11/17/16 13:00 59 11/17/16 12:00 59 I/O 11/17/16 11/17/16 11/17/16 11/18/16 11/18/16 11/18/16 06:59 14:59 22:59 06:59 14:59 22:59 Intake Total 700 ml 1812 ml 800 ml Output Total 325 ml 300 ml 350 ml Balance 375 ml 1512 ml 450 ml Intake IV Total 700 ml 1812 ml 800 ml Output Urine Total 325 ml 300 ml 350 ml Result Diagram: 11/17/16 0550 11/17/16 0550 Imaging Last Impressions Head CT 11/16/16 0000 Signed Impressions: Service Date/Time: Wednesday, November 16, 2016 09:40 - CONCLUSION: Ischemic changes negative for an acute process. Adam Trent MD FACR Chest X-Ray 11/16/16 0000 Signed Impressions: Service Date/Time: Wednesday, November 16, 2016 10:13 - CONCLUSION: 1. Cardiomegaly with mild congestive failure. 2. Pacemaker. Adam Trent MD FACR Cervical Spine CT 11/16/16 0000 Signed Impressions: Service Date/Time: Wednesday, November 16, 2016 09:40 - CONCLUSION: 1. No acute fracture or subluxation. 2. Multilevel degenerative spondylosis with variable degrees of facet arthropathy and neural foraminal stenosis, as above. 3. Incidental note of a markedly enlarged right thyroid lobe. This may be further evaluated with ultrasound examination of an outpatient basis as clinically warranted. Kenneth Bruno MD Carotid Artery Ultrasound 11/16/16 0000 Signed Impressions: Service Date/Time: Wednesday, November 16, 2016 10:48 - CONCLUSION: Negative examination for a hemodynamically significant carotid stenosis. Minimal soft plaque is noted on the right. CT angiography may be of benefit. Adam Trent MD Objective Remarks GENERAL: lethargic and unable to follow commands SKIN: Warm and dry. HEAD: Normocephalic. EYES: No scleral icterus. No injection or drainage. NECK: Supple, trachea midline. No JVD or lymphadenopathy. CARDIOVASCULAR: Regular rate and rhythm without murmurs, gallops, or rubs. RESPIRATORY: Breath sounds decrease bilaterally. No accessory muscle use. GASTROINTESTINAL: Abdomen soft, non-tender, nondistended. MUSCULOSKELETAL: No cyanosis, or edema. Restrains to BUEs BACK: Nontender without obvious deformity. No CVA tenderness. A/P Problem List: (1) TIA (transient ischemic attack) ICD Code: G45.9 Status: Acute (2) Encephalopathy, metabolic ICD Code: G93.41 Status: Acute (3) Toxic metabolic encephalopathy ICD Code: G92 Status: Acute (4) NSTEMI (non-ST elevated myocardial infarction) ICD Code: I21.4 Status: Acute (5) Hypertension ICD Code: I10 Status: Acute (6) CAD (coronary artery disease) ICD Code: I25.10 Status: Acute (7) Atrial fibrillation ICD Code: I48.91 Status: Acute Assessment and Plan 86-year-old man with TIA vs CVA -As patient unable to take by mouth including aspirin and Eliquis, currently on heparin drip -Start statin therapy when patient able to take by mouth -NIHSS, Neuro checks, Monitor on telemetry -PT/OT/ST evaluations, consult rehab medicine -d/c permissive HTN - lipid profile and HgbA1c noted -carotid U/S, 2-D echo and EEG noted -Head CT 11/16/16 noted and review by me with Ischemic changes negative for an acute process. -Unable to obtain brain MRI/MRA secondary to history of AICD -Unable to obtain CTA secondary to worsening renal function -Appreciate input from neurology -UDS, UA as well as ammonia level all within normal limits Non-ST elevation NV History of atrial fibrillation History of AICD placement History of CHF ACS ruled out per protocol with serial cardiac enzyme and EKGs Currently on heparin drip and was transitioned to by mouth Eliquis when patient able to tolerate Continue outpatient medications except antihypertensive medications Appreciate input from cardiology however patient is not currently a candidate for left heart catheterization 2-D echo noted History of hypertension: s/p permissive hypertension Acute renal failure Prerenal, secondary to dehydration Gentle IV fluid hydration and monitor BUN and creatinine. Avoid all nephrotoxic drugs History of dementia Resume outpatient medications when able to tolerate by mouth Appreciate input from Palliative Care medicine DNR Aime Hendricks MD Nov 18, 2016 11:56
[2016-11-18] MEDS ORDERED: DEXT 5%-NACL 0.45% 1000 ML INJ 1,000 ML IV SCH (12:00)
--- NOTE | 2016-11-18 14:53 | HHI.HCPN ---
Reason for visit a. To assist with evaluation and management of symptoms including: confusion , dysphagia, pain b. To assist medical decision maker(s) with: better understanding of current medical conditions; weighing benefits/burdens of medical treatment options; making medical treatment decisions. Subjective/Interval History Pt seen to follow up on comfort, goals w decision maker. Nsg reports no improvement in neuro status. Minimally verbal, a few repetitive words. Confused. Episodes of restlessness , pulling at IV , plascencia etc. Restraints applied overnight. Required ativan 1mg, 0.5mg at 6pm, 2am for agitation /confusion. Also receiving prn IV tylenol for chronic back pain, avoiding opiates due to concern for worsening AMS. No new labs or imaging today. NO family in yet today per nursing- son in last evening, brought pt hearing aid- - no improvement in response or interaction with hearing aid in. Pt seen in room, restrained in bed. No visitors present. Pt w eyes closed will not open to my request or exam squeezes them shut. Moving all 4 extremities spontaneously, localizes to touch. Strength appears equal bilaterally but difficult to assess. Does not follow commands. Following exam call to eulalio Hdez. Again review current diagnoses, conditions, clinical assessment. Review very limited treatment options at this point. Review current condition is stable though we are just supporting/maintaining patient. he is not improving, remains very high risk for ongoing decline and further complications which could occur at any time related to bedbound status, AMS, respiratory complications etc. Advised that if ongoing aggressive treatment intervention was desired then will need to consider feeding tube, other invasive and supportive measures as patient is not able to eat or drink due to neurological status, also remains at risk for respiratory decline etc. Alternatively review that those interventions will not serve to treat or correct possible CVA, and NSTEMI they are just providing supportive care.Review poss trajectory of cont aggressive intervention including feeding tube, poss prolong hosp. course etc. If he did not desire aggressive or invasive interventions and he would have the option for comfort measures via hospice. Review hospice role/philosophy, services, care centers etc. He and his family support are visiting a couple of nursing homes today including the [facility] locally, attempting to explore options, also getting patient affairs in order. They are going to continue to talk --no decisions made at this time, eulalio Hdez will contact me later today, and/or advise medical attending team over the weekend on treatment wishes going forward. They do not think they will proceed w further aggressive measures, just wish to maintain things for now while they cont to discuss hospice. s/w nurse, medical attending. Advance Directives Living Will: Copy in medical record Health Care Surrogate: Copy in medical record Advance Directive Specifics Date completed: adv directive dated 2012 Health Care Surrogate(s): 1st, Lemuel John ([place]) 2nd Alex John ([place]) Documented care wishes: Advanced directive document directs healthcare providers withhold or withdraw treatment and the presence of an irreversible condition or loss of consciousness which he is not expected to regain consciousness, or likely risks would outweigh benefits of treatments. Objective Vital Signs Date Time Temp Pulse Resp B/P Pulse Ox O2 Delivery O2 Flow Rate FiO2 11/18/16 13:00 66 11/18/16 12:00 82 11/18/16 11:00 98.4 69 17 188/87 93 11/18/16 11:00 58 11/18/16 10:11 96 Nasal Cannula 3.50 11/18/16 10:00 75 11/18/16 09:00 79 11/18/16 08:47 190/76 11/18/16 08:00 65 11/18/16 07:00 98.7 68 24 177/74 96 11/18/16 07:00 96 Nasal Cannula 3.00 11/18/16 07:00 64 11/18/16 06:08 60 11/18/16 05:05 65 11/18/16 04:00 58 11/18/16 03:00 98.6 60 199/79 96 11/18/16 03:00 59 11/18/16 02:00 70 11/18/16 01:00 62 11/18/16 00:00 60 11/17/16 23:00 98.4 60 136/63 96 11/17/16 23:00 60 11/17/16 22:00 60 11/17/16 21:00 60 11/17/16 20:00 58 11/17/16 19:00 Nasal Cannula 2.00 21 11/17/16 19:00 60 11/17/16 19:00 99.1 62 204/81 96 11/17/16 18:48 59 11/17/16 17:00 60 6/8/17 16:00 60 11/17/16 15:46 160/66 11/17/16 15:00 98.4 59 20 188/86 92 11/17/16 15:00 60 Intake & Output 11/18/16 11/18/16 07:00 19:00 Intake Total 800 ml Output Total 350 ml Balance 450 ml Intake IV Total 800 ml Output Urine Total 350 ml Physical Exam CONSTITUTIONAL/GENERAL: This is an adequately nourished elderly patient, confused and moaning at times. TUBES/LINES/DRAINS: Peripheral IV wrapped with gauze rt upper extremity, Plascencia catheter, SCDs, nasal cannula. SKIN: No jaundice, rashes, or lesions. Few areas Ecchymoses on upper extremities. No wounds seen anteriorly. Skin warm HEAD: Atraumatic. Normocephalic. EYES: Pupils- squeezes eyes shut when attempt to examine.No injection or drainage. Fundi not examined. ENT: Very hard of hearing. Nose without bleeding or purulent drainage. does not open mouth for oropharynx exam. CARDIOVASCULAR: irregular rate and rhythm. Peripheral pulses symmetric. RESPIRATORY/CHEST: Symmetric, unlabored respirations. On 3.5 L nasal cannula. Clear to auscultation. Breath sounds equal bilaterally. GASTROINTESTINAL: Abdomen soft, non-tender, nondistended. No palpable masses. No guarding. Bowel sounds present. GENITOURINARY: Without palpable bladder distension. Plascencia catheter in place. NEUROLOGICAL: Eyes closed , lethargic. restless at times. when asked any questions just responds "im tired" , repetitive. Moans at times. Does not answer any other questions for me including date of , family names etc. Does not follow any commands for me did speak very loudly and directly in the region of his ear due to [place]. Observed to move all 4 extremities spontaneously with no obvious deficit. No obvious facial droop. PSYCHIATRIC: Mild restlessness, repetitive speech Diagnostic Tests Laboratory Laboratory Tests Test 11/16/16 11/16/16 11/16/16 11/16/16 09:30 09:49 10:50 12:35 White Blood Count 9.2 TH/MM3 (4.0-11.0) Red Blood Count 4.61 MIL/MM3 (4.50-5.90) Hemoglobin 13.2 GM/DL (13.0-17.0) Bedside Hemoglobin 13.9 G/DL (12.0-17.0) Hematocrit 40.0 % (39.0-51.0) Bedside Hematocrit 41.0 % (38.0-51.0) Mean Corpuscular Volume 86.6 FL (80.0-100.0) Mean Corpuscular Hemoglobin 28.7 PG (27.0-34.0) Mean Corpuscular Hemoglobin 33.1 % Concent (32.0-36.0) Red Cell Distribution Width 15.2 % (11.6-17.2) Platelet Count 216 TH/MM3 (150-450) Mean Platelet Volume 9.6 FL (7.0-11.0) Neutrophils (%) (Auto) 80.6 % (16.0-70.0) Lymphocytes (%) (Auto) 9.0 % (9.0-44.0) Monocytes (%) (Auto) 8.6 % (0.0-8.0) Eosinophils (%) (Auto) 1.2 % (0.0-4.0) Basophils (%) (Auto) 0.6 % (0.0-2.0) Neutrophils # (Auto) 7.4 TH/MM3 (1.8-7.7) Lymphocytes # (Auto) 0.8 TH/MM3 (1.0-4.8) Monocytes # (Auto) 0.8 TH/MM3 (0-0.9) Eosinophils # (Auto) 0.1 TH/MM3 (0-0.4) Basophils # (Auto) 0.1 TH/MM3 (0-0.2) CBC Comment DIFF FINAL Differential Comment Prothrombin Time 12.3 SEC (9.8-11.6) Prothromb Time International 1.1 RATIO Ratio Activated Partial 32.0 SEC Thromboplast Time (24.3-30.1) Fibrinogen 429 mg/dL (227-377) Bedside Sodium 139 MMOL/L (138-146) Bedside Potassium 3.5 MMOL/L (3.5-4.9) Bedside Chloride 103 MMOL/L (98-109) Bedside Blood Urea Nitrogen 43 MG/DL (8-26) Bedside Creatinine 2.8 MG/DL (0.8-1.3) Bedside Glucose 178 MG/DL (60-95) Hemoglobin A1c 6.3 % (4.3-6.0) Total Creatine Kinase 365 U/L (39-308) Creatine Kinase MB 11.6 NG/ML (0.5-3.6) Creatine Kinase MB % 3.2 % (0.0-4.0) Troponin I 3.42 NG/ML (0.02-0.05) B-Type Natriuretic Peptide 651 PG/ML (0-100) Blood Type B POSITIVE Antibody Screen NEGATIVE Blood Bank Comment Urine Color YELLOW (YELLW/STRAW) Urine Turbidity CLEAR (CLEAR) Urine pH 5.5 (5.0-8.5) Urine Specific [place] 1.010 (1.002-1.035) Urine Protein 30 mg/dL (NEG-TRACE) Urine Glucose (UA) NEG mg/dL (NEG) Urine Ketones NEG mg/dL (NEG) Urine Occult Blood NEG (NEG) Urine Nitrite NEG (NEG) Urine Bilirubin NEG (NEG) Urine Urobilinogen LESS THAN 2.0 MG/DL (LESS THAN 2.0) Urine Leukocyte Esterase NEG (NEG) Urine RBC 1 /hpf (0-3) Urine WBC LESS THAN 1 /hpf (0-5) Urine Amorphous Sediment OCC Urine Bacteria RARE /hpf (NONE) Urine Hyaline Casts 1 /lpf (RARE) Urine Mucus FEW /lpf (OCC) Microscopic Urinalysis Comment Urine Opiates Screen NEG (NEG) Urine Barbiturates Screen NEG (NEG) Urine Amphetamines Screen NEG (NEG) Urine Benzodiazepines Screen NEG (NEG) Urine Cocaine Screen NEG (NEG) Urine Cannabinoids Screen NEG (NEG) Ammonia LESS THAN 10 MCMOL/L (11-32) Test 11/16/16 11/16/16 11/17/16 11/17/16 13:53 22:24 05:50 11:46 Total Creatine Kinase 358 U/L 270 U/L (39-308) (39-308) Creatine Kinase MB 10.6 NG/ML (0.5-3.6) Creatine Kinase MB % 3.0 % (0.0-4.0) Troponin I 3.92 NG/ML 3.88 NG/ML (0.02-0.05) (0.02-0.05) Total Bilirubin 1.3 MG/DL 1.3 MG/DL (0.2-1.0) (0.2-1.0) Direct Bilirubin 0.6 MG/DL (0.0-0.2) Indirect Bilirubin 0.7 MG/DL (0.0-0.8) Aspartate Amino Transf 46 U/L (15-37) 46 U/L (15-37) (AST/SGOT) Alanine Aminotransferase 28 U/L (12-78) 28 U/L (12-78) (ALT/SGPT) Alkaline Phosphatase 126 U/L 134 U/L (45-117) (45-117) Total Protein 6.7 GM/DL 7.0 GM/DL (6.4-8.2) (6.4-8.2) Albumin 3.1 GM/DL 3.2 GM/DL (3.4-5.0) (3.4-5.0) White Blood Count 9.6 TH/MM3 (4.0-11.0) Red Blood Count 4.75 MIL/MM3 (4.50-5.90) Hemoglobin 13.6 GM/DL (13.0-17.0) Hematocrit 41.3 % (39.0-51.0) Mean Corpuscular Volume 86.8 FL (80.0-100.0) Mean Corpuscular Hemoglobin 28.5 PG (27.0-34.0) Mean Corpuscular Hemoglobin 32.9 % Concent (32.0-36.0) Red Cell Distribution Width 15.2 % (11.6-17.2) Platelet Count 213 TH/MM3 (150-450) Mean Platelet Volume 10.1 FL (7.0-11.0) Neutrophils (%) (Auto) 77.2 % (16.0-70.0) Lymphocytes (%) (Auto) 12.7 % (9.0-44.0) Monocytes (%) (Auto) 9.4 % (0.0-8.0) Eosinophils (%) (Auto) 0.3 % (0.0-4.0) Basophils (%) (Auto) 0.4 % (0.0-2.0) Neutrophils # (Auto) 7.4 TH/MM3 (1.8-7.7) Lymphocytes # (Auto) 1.2 TH/MM3 (1.0-4.8) Monocytes # (Auto) 0.9 TH/MM3 (0-0.9) Eosinophils # (Auto) 0.0 TH/MM3 (0-0.4) Basophils # (Auto) 0.0 TH/MM3 (0-0.2) CBC Comment DIFF FINAL Differential Comment Activated Partial 59.5 SEC 69.9 SEC Thromboplast Time (24.3-30.1) (24.3-30.1) Sodium Level 142 MEQ/L (136-145) Potassium Level 3.6 MEQ/L (3.5-5.1) Chloride Level 106 MEQ/L (98-107) Carbon Dioxide Level 23.1 MEQ/L (21.0-32.0) Anion Gap 13 MEQ/L (5-15) Blood Urea Nitrogen 40 MG/DL (7-18) Creatinine 2.59 MG/DL (0.60-1.30) Estimat Glomerular Filtration 24 ML/MIN (>89) Rate Random Glucose 125 MG/DL (74-106) Hemoglobin A1c 6.3 % (4.3-6.0) Calcium Level 9.5 MG/DL (8.5-10.1) Triglycerides Level 100 MG/DL (42-150) Cholesterol Level 168 MG/DL (120-200) LDL Cholesterol 116 MG/DL (0-99) HDL Cholesterol 32.2 MG/DL (40.0-60.0) Cholesterol/HDL Ratio 5.21 RATIO Test 11/18/16 04:25 Activated Partial 53.8 SEC Thromboplast Time (24.3-30.1) Result Diagram: 11/17/16 0550 11/17/16 0550 Assessment and Plan Disease Oriented Problem List: (1) CAD (coronary artery disease) (2) Hypertension (3) NSTEMI (non-ST elevated myocardial infarction) (4) Atrial fibrillation (5) Altered mental status (6) TIA (transient ischemic attack) Comment: Possible CVA unable to obtain MRI (7) Encephalopathy, metabolic (8) Acute renal failure Symptom Scale: (1) Confusion 0-10 Scale: Unable to quantify (2) Dysphagia 0-10 Scale: Unable to quantify (3) Pain 0-10 Scale: Unable to quantify Comment: Long history chronic back pain for many years Pertinent Non-Medical Issues Psychosocial:, 1st many years ago, remarried later his second . Has 2 adult sons. Son Lemuel designated first HCS his primary support. Also has a significant other with significant health concerns and issues of her own. She lived with him and helped him manage medications, and the household as he was no longer able to attend to his own needs in the home. Served in the [employer] during the [place] era though did not see active combat. 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 Spiritual: Congregational jhoan Legal:Patient currently with altered mental status is not clear he will regain ability to participate in decision-making. As healthcare surrogate designating LemuelAlex as healthcare surrogate. Ethical issues impacting care: Important Contacts Lemuel Lopez ([place]) [phone] Alexkaren Stewartross ([place]) [phone] . Prognosis This patient was admitted for AMS- CVA vs TIA, NSTEMI. He is not a candidate for further invasive CV evaluation, and cannot undergo MRI/MRA evaluation due to implanted device. Limited treatment options, supportive care essentially. High risk for continued decline and complications. Appropriate for hospice if goals comfort oriented. . Code Status: Full Code Plan Legal decision maker:Patient currently with altered mental status is not clear he will regain ability to participate in decision-making, additionally has history of mild dementia. As healthcare surrogate designating Dexter Hdezkaren Lopez as healthcare surrogate. Goals: Spoke with son eLmuel who is healthcare surrogate, again today in follow-up. he seems to have a reasonable understanding of conditions and overall prognosis. Family going to continue to talk --no decisions made at this time, son Lemuel will contact me later today, and/or advise medical attending team over the weekend on treatment wishes going forward. I have reviewed with him limit options, option for hospice and comfort measures only. For now continue current treatments, semi-aggressive short of DNR. He does not think he would elect to proceed with a feeding tube or other invasive measures based on pt known wishes, just wish to maintain things for now while they cont to discuss hospice. 1530---->>>>> later received call back from son, they would like to proceed wt hospice, comfort measures only, based on pt known wishes. They would ultimately like to get [facility] if the pt survives, (they have met with admissions there); but in the meantime would want no further aggressive or invasive procedures. They request [facility] placement for symptom management. while they pursue [facility] enrollment. d/w attending, RN, hospice admissions. Hospice consult order placed. CODE STATUS: DNR SYMPTOMS: --Confusion-history of mild dementia. admitted for possible TIA versus CVA-- altered mental status // unable to obtain MRI due to implanted devices. Continues to be lethargic and confused. Required Ativan 2 (1.5 mg total) in the past 24 hours for episodes of agitation. No improvement in mental status today. --agitation/anxiety- -history of mild dementia. possible TIA versus CVA-- altered mental status // unable to obtain MRI due to implanted devices.++ episodes of agitation/restlessness pulling at IV , plascencia etc. now requiring restraints. Required Ativan 2 (1.5 mg total) in the past 24 hours for episodes of agitation. No improvement in mental status today. 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 Medical attending has added IV Tylenol; this has been changed to by mouth/per rectum Tylenol. Cautious use of opiates at this point given high risk for continued neurological decline; if goals comfort oriented would benefit from low-dose opiates prn, he does cont to verbalize pain to nursing. --Dysphagia-high risk for dysphagia/aspiration secondary to possible CVA, altered mental status Palliative care will continue to follow during hospital course as condition evolves, to assist patient/decision-maker with understanding of medical conditions, weighing benefits/burdens of treatment options, for clarification of goals of treatment. Additionally will assist with any symptoms of palliative concern Time Spent Total Floor Time (mins): 45 >50% Counseling/Coord of Care: Yes (d/w primary Rn, medical attending, hospice admissions. ) Attestation To help prompt me to consider important information that might be impacting today's encounter and assessment, information from prior notes written by myself or my colleagues may have been "brought forward" into today's note. My signature on this note, however, is an attestation that I personally performed the exam, history, and/or decision-making noted today, and, unless otherwise indicated, the interactions with patient, family, and staff as well as the review of records all occurred today. I also attest that the listed assessment and stated plan reflect my best clinical judgment today based on the combination of historical information, prior notes, and today's exam/ interactions. When time spent is documented, it refers only to time spent today by the signer, or if indicated, combined time spent today by collaborating physician/nurse practitioner. Delia Stuart Nov 18, 2016 14:53 interactions. When time spent is documented, it refers only to time spent today by the signer, or if indicated, combined time spent today by collaborating physician/nurse practitioner. Delia Stuart Nov 18, 2016 14:53
--- NOTE | 2016-11-18 17:44 | HHI.DS ---
Discharge Summary Admission Date Nov 16, 2016 at 11:23 Discharge Date: Nov 18, 2016 Admitting Diagnosis NSTEMI, altered mental status (1) TIA (transient ischemic attack) ICD Code: G45.9 (2) Encephalopathy, metabolic ICD Code: G93.41 (3) Toxic metabolic encephalopathy ICD Code: G92 (4) NSTEMI (non-ST elevated myocardial infarction) ICD Code: I21.4 (5) Hypertension ICD Code: I10 (6) CAD (coronary artery disease) ICD Code: I25.10 (7) Atrial fibrillation ICD Code: I48.91 Procedures none Brief History - From Admission Patient is unable to communicate at this time during my exam and history is obtained from ED report and chart review below; "86-year-old male presents by ambulance for altered mental status and facial droop. This occurred 1 hour prior to arrival. Patient can state his name but history is very limited. Ambulance team stated that his legs went out from underneath him and there was report of possible fall" Abnormal labs include troponin I 3.42, BNP 651, BUN/creatinine 43/2.8 and blood glucose 178. Vitals on admission HR 71, RR 18, BP 186/124 and 96%RA CBC/BMP: 11/17/16 0550 11/17/16 0550 Significant Findings Laboratory Tests Test 11/16/16 11/16/16 11/16/16 11/16/16 09:30 10:50 12:35 13:53 Neutrophils (%) (Auto) 80.6 % (16.0-70.0) Monocytes (%) (Auto) 8.6 % (0.0-8.0) Lymphocytes # (Auto) 0.8 TH/MM3 (1.0-4.8) Prothrombin Time 12.3 SEC (9.8-11.6) Activated Partial 32.0 SEC Thromboplast Time (24.3-30.1) Fibrinogen 429 mg/dL (227-377) Bedside Blood Urea Nitrogen 43 MG/DL (8-26) Bedside Creatinine 2.8 MG/DL (0.8-1.3) Bedside Glucose 178 MG/DL (60-95) Hemoglobin A1c 6.3 % (4.3-6.0) Total Creatine Kinase 365 U/L 358 U/L (39-308) (39-308) Creatine Kinase MB 11.6 NG/ML 10.6 NG/ML (0.5-3.6) (0.5-3.6) Troponin I 3.42 NG/ML 3.92 NG/ML (0.02-0.05) (0.02-0.05) B-Type Natriuretic Peptide 651 PG/ML (0-100) Urine Protein 30 mg/dL (NEG-TRACE) Urine Bacteria RARE /hpf (NONE) Urine Mucus FEW /lpf (OCC) Ammonia LESS THAN 10 MCMOL/L (11-32) Test 11/16/16 11/17/16 11/17/16 11/18/16 22:24 05:50 11:46 04:25 Total Bilirubin 1.3 MG/DL 1.3 MG/DL (0.2-1.0) (0.2-1.0) Direct Bilirubin 0.6 MG/DL (0.0-0.2) Aspartate Amino Transf 46 U/L (15-37) 46 U/L (15-37) (AST/SGOT) Alkaline Phosphatase 126 U/L 134 U/L (45-117) (45-117) Troponin I 3.88 NG/ML (0.02-0.05) Albumin 3.1 GM/DL 3.2 GM/DL (3.4-5.0) (3.4-5.0) Neutrophils (%) (Auto) 77.2 % (16.0-70.0) Monocytes (%) (Auto) 9.4 % (0.0-8.0) Activated Partial 59.5 SEC 69.9 SEC 53.8 SEC Thromboplast Time (24.3-30.1) (24.3-30.1) (24.3-30.1) Blood Urea Nitrogen 40 MG/DL (7-18) Creatinine 2.59 MG/DL (0.60-1.30) Estimat Glomerular Filtration 24 ML/MIN (>89) Rate Random Glucose 125 MG/DL (74-106) Hemoglobin A1c 6.3 % (4.3-6.0) LDL Cholesterol 116 MG/DL (0-99) HDL Cholesterol 32.2 MG/DL (40.0-60.0) Imaging Last Impressions Head CT 11/16/16 Signed Impressions: Service Date/Time: Wednesday, November 16, 2016 09:40 - CONCLUSION: Ischemic changes negative for an acute process. Adam Trent MD FACR Chest X-Ray 11/16/16 Signed Impressions: Service Date/Time: Wednesday, November 16, 2016 10:13 - CONCLUSION: 1. Cardiomegaly with mild congestive failure. 2. Pacemaker. Adam Trent MD FACR Cervical Spine CT 11/16/16 Signed Impressions: Service Date/Time: Wednesday, November 16, 2016 09:40 - CONCLUSION: 1. No acute fracture or subluxation. 2. Multilevel degenerative spondylosis with variable degrees of facet arthropathy and neural foraminal stenosis, as above. 3. Incidental note of a markedly enlarged right thyroid lobe. This may be further evaluated with ultrasound examination of an outpatient basis as clinically warranted. Kenneth Bruno MD Carotid Artery Ultrasound 11/16/16 Signed Impressions: Service Date/Time: Wednesday, November 16, 2016 10:48 - CONCLUSION: Negative examination for a hemodynamically significant carotid stenosis. Minimal soft plaque is noted on the right. CT angiography may be of benefit. Adam Trent MD PE at Discharge GENERAL: lethargic and unable to follow commands SKIN: Warm and dry. HEAD: Normocephalic. EYES: No scleral icterus. No injection or drainage. NECK: Supple, trachea midline. No JVD or lymphadenopathy. CARDIOVASCULAR: Regular rate and rhythm without murmurs, gallops, or rubs. RESPIRATORY: Breath sounds decrease bilaterally. No accessory muscle use. GASTROINTESTINAL: Abdomen soft, non-tender, nondistended. MUSCULOSKELETAL: No cyanosis, or edema. Restrains to BUEs BACK: Nontender without obvious deformity. No CVA tenderness. Hospital Course Patient prior to being transferred to hospice was treated for: TIA vs CVA -As patient unable to take by mouth including aspirin and Eliquis, currently on heparin drip -Start statin therapy when patient able to take by mouth -NIHSS, Neuro checks, Monitor on telemetry -PT/OT/ST evaluations, consult rehab medicine -d/c permissive HTN - lipid profile and HgbA1c noted -carotid U/S, 2-D echo and EEG noted -Head CT 11/16/16 noted and review by me with Ischemic changes negative for an acute process. -Unable to obtain brain MRI/MRA secondary to history of AICD -Unable to obtain CTA secondary to worsening renal function -Appreciate input from neurology -UDS, UA as well as ammonia level all within normal limits Non-ST elevation MD History of atrial fibrillation History of AICD placement History of CHF ACS ruled out per protocol with serial cardiac enzyme and EKGs Currently on heparin drip and was transitioned to by mouth Eliquis when patient able to tolerate Continue outpatient medications except antihypertensive medications Appreciate input from cardiology however patient is not currently a candidate for left heart catheterization 2-D echo noted History of hypertension: s/p permissive hypertension Acute renal failure Prerenal, secondary to dehydration Gentle IV fluid hydration and monitor BUN and creatinine. Avoid all nephrotoxic drugs Pt Condition on Discharge: Deteriorating Discharge Disposition: Hospice/Med Facility Discharge Time: > 30 minutes Discharge Instructions DIET: Follow Instructions for: Heart Healthy Diet Activities you can perform: Regular-No Restrictions Aime Hendricks MD Nov 18, 2016 17:44
--- NOTE | 2016-11-18 18:29 | HHI.PR ---
Review/Management Diagnosis probalbe cva vs TIA--exam is stable afib pacemaker h/o TAVR agree with iv heparin Plan continue iv heparin recommend senior living anticoagulation with oral anticoagulant due to afib. Diagnosis/Plan: Subjective Subjective Comments No acute events reported Active Medications Current Medications Medications (Trade) Dose Ordered Sig/[place] Route Start Time Stop Time Status Last Admin (Aspirin Chew) 81 mg DAILY PO 11/17/16 09:00 (NovoLOG SUPPLEMENTAL SCALE) 1 ACHS SQ 11/16/16 11:00 (D50w (Vial) Inj) 50 ml UNSCH PRN IV PUSH 11/16/16 10:15 (Glucagon Inj) 1 mg UNSCH PRN OTHER 11/16/16 10:15 (NS Flush) 2 ml UNSCH PRN IV FLUSH 11/16/16 11:30 (NS Flush) 2 ml BID IV FLUSH 11/16/16 21:00 11/17/16 20:09 (Tylenol) 650 mg Q4H PRN PO 11/16/16 11:30 (Zofran Inj) 4 mg Q6H PRN IVP 11/16/16 11:30 (Tylenol) 650 mg Q6H PRN PO 11/16/16 11:30 (Narcan Inj) 0.4 mg UNSCH PRN IV 11/16/16 11:30 (Senokot) 17.2 mg Q12H PRN PO 11/16/16 11:30 (Eliquis) 2.5 mg BID PO 11/16/16 21:00 (Lasix) 40 mg DAILY PO 11/17/16 09:00 (Imdur) 60 mg DAILY@07 PO 11/17/16 07:00 Hydralazine HCl 20 mg 20 mg Q4H PRN IV PUSH 11/16/16 12:15 11/18/16 14:25 (Heparin-D5W Inj) 250 ml @ 0 mls/hr TITRATE IV 11/16/16 23:15 11/18/16 00:52 (Heparin Inj) 5,000 units UNSCH PRN IV 11/16/16 23:15 Heparin Sodium (Porcine) 2500 units 2,500 units UNSCH PRN IV 11/16/16 23:15 (D5W-1/2 NS 1000 ml Inj) 1,000 ml @ 75 mls/hr [id number] IV 11/18/16 12:00 11/18/16 12:37 Allergies Allergies Coded Allergies HMG-CoA Reductase Inhibitors (Verified Allergy, Severe, 10/07/15) MRI PRECAUTION (Verified Adverse Reaction, Severe, PACEMAKER (KD) 12/21/09, 03/04) Exam I&O / VS 11/17/16 11/17/16 11/18/16 15:00 23:00 07:00 Intake Total 1812 ml 800 ml Output Total 300 ml 350 ml Balance 1512 ml 450 ml Intake IV Total 1812 ml 800 ml Output Urine Total 300 ml 350 ml Vital Signs Date Time Temp Pulse Resp B/P Pulse Ox O2 Delivery O2 Flow Rate FiO2 11/18/16 18:00 66 11/18/16 17:00 65 11/18/16 16:00 76 11/18/16 15:00 98.9 89 22 190/91 94 11/18/16 15:00 83 11/18/16 14:27 188/65 11/18/16 14:00 80 11/18/16 13:00 66 11/18/16 12:00 82 11/18/16 11:00 98.4 69 17 188/87 93 11/18/16 11:00 58 11/18/16 10:11 96 Nasal Cannula 3.50 11/18/16 10:00 75 11/18/16 09:00 79 11/18/16 08:47 190/76 11/18/16 08:00 65 11/18/16 07:00 98.7 68 24 177/74 96 11/18/16 07:00 96 Nasal Cannula 3.00 11/18/16 07:00 64 11/18/16 06:08 60 11/18/16 05:05 65 11/18/16 04:00 58 11/18/16 03:00 98.6 60 199/79 96 11/18/16 03:00 59 11/18/16 02:00 70 11/18/16 01:00 62 11/18/16 00:00 60 11/17/16 23:00 98.4 60 136/63 96 11/17/16 23:00 60 11/17/16 22:00 60 11/17/16 21:00 60 11/17/16 20:00 58 11/17/16 19:00 Nasal Cannula 2.00 21 11/17/16 19:00 60 11/17/16 19:00 99.1 62 204/81 96 11/17/16 18:48 59 Exam Comments lethargic but easy to arouse. follows commands. He is hard of hearing and difficult to evaluate Cn normal--no facial droop Motor moves BUE and BLE equally Objective Micro and Labs Laboratory Tests Test 11/18/16 04:25 Activated Partial 53.8 Thromboplast Time Michael Garrido PhD Nov 18, 2016 18:29
== END 2016-11-18 20:41 | disposition hospice, inpatient (51) | DRG 69 ==
LOC: NEPC 09:32 → NEDA 11:23 → HCIS 13:48
PROVIDERS: ADMIT Hospitalist; ATTEND Hospitalist
DX: G45.9 Transient cerebral ischemic attack, unspecified (principal); I21.4 Non-ST elevation (NSTEMI) myocardial infarction; G93.41 Metabolic encephalopathy; N17.9 Acute kidney failure, unspecified; R13.10 Dysphagia, unspecified; I50.9 Heart failure, unspecified; I48.91 Unspecified atrial fibrillation; I11.0 Hypertensive heart disease with heart failure; F03.90 Unspecified dementia, unspecified severity, without behavioral disturbance, psychotic disturbance, mood disturbance, and anxiety; E86.0 Dehydration; I08.1 Rheumatic disorders of both mitral and tricuspid valves; Z78.1 Physical restraint status; E78.00 Pure hypercholesterolemia, unspecified; Z95.2 Presence of prosthetic heart valve; Z79.02 Long term (current) use of antithrombotics/antiplatelets; I25.10 Atherosclerotic heart disease of native coronary artery without angina pectoris; H91.90 Unspecified hearing loss, unspecified ear; R29.810 Facial weakness; Z85.46 Personal history of malignant neoplasm of prostate; Z95.810 Presence of automatic (implantable) cardiac defibrillator; M47.9 Spondylosis, unspecified; M48.00 Spinal stenosis, site unspecified; Z95.5 Presence of coronary angioplasty implant and graft; Z87.891 Personal history of nicotine dependence; Z66 Do not resuscitate; Z51.5 Encounter for palliative care; I73.9 Peripheral vascular disease, unspecified; E78.5 Hyperlipidemia, unspecified; R47.1 Dysarthria and anarthria; Z86.73 Personal history of transient ischemic attack (TIA), and cerebral infarction without residual deficits; I71.4 Abdominal aortic aneurysm, without rupture; G89.29 Other chronic pain; M54.9 Dorsalgia, unspecified
CPT/HCPCS: 70450; 71010; 72125; 76937; 80053; 80061; 80076; 80307; 81001; 82140; 82435; 82550; 82552; 82565; 82947; 82948; 83036; 83880; 84132; 84295; 84484; 84520; 85025; 85384; 85610; 85730; 86850; 86900; 86901; 93005; 93306; 93880; 95819; J0131; J0360; J1644; J2060; J7030; P9612